=== PATIENT | female | born 1960 | race Caucasian/White ===

== ENCOUNTER 2024-02-13 11:31 | Outpatient (OUT) | payer OTHER, SELFPAY ==
--- NOTE | 2024-02-13 12:02 | XR_ITS ---
The [address] [address] Patient Name: BRUNA BOLDEN MRN: [id number] date: 1960 Sex: F Assigned Patient Location: LAB Current Patient Location: LAB Accession/Order Number: [id number] Exam Date: 02/13/2024 12:04 Report Date: 02/13/2024 12:22 At the request of: NON-STAFF PHYSICIAN Procedure: XR chest 2V EXAM: XR chest 2V HISTORY: generalized hyperhidrosis R61 COMPARISON: None. TECHNIQUE: PA and lateral views of the chest. FINDINGS: The cardiomediastinal silhouette is normal. No focal consolidation is identified. There is no pneumothorax. No pleural effusion is noted. The osseous structures are intact. XR/XR chest 2V IMPRESSION: No acute cardiopulmonary process. Electronically authenticated by: CLARK LANDERS Date: 02/13/2024 12:22
[2024-02-13 12:07] LABS: Basophils Absolute Auto 0.1 10^3/uL (0.0-0.1); Eosinophils Absolute Auto 0.1 10^3/uL (0.0-0.7); Eosinophils Percent Auto 2.2 % (0.9-7.0); Hematocrit 42.7 % (36.0-48.0); Hemoglobin 14.4 g/dL (12.0-16.0); Immature Granulocytes Abs Auto 0.02 10^3/uL (0.00-0.03); Immature Granulocytes Pct Auto 0.4 % (0.0-0.5); Lymphocytes Absolute Auto 1.4 10^3/uL (1.2-3.8); Lymphocytes Percent Auto 26.5 % (20.5-60.0); Mean Corpuscular HGB Conc 33.7 g/dL (29.9-35.2); Mean Corpuscular Hemoglobin 31.2 pg (26.7-34.0); Mean Corpuscular Volume 92.6 fL (81.0-99.0); Mean Platelet Volume 9.4 fL (9.5-13.5); Monocytes Absolute Auto 0.4 10^3/uL (0.3-0.8); Monocytes Percent Auto 8.6 % (1.7-12.0); Neutrophils Absolute Auto 3.1 10^3/uL (1.4-6.5); Neutrophils Percent Auto 61.3 % (43.0-75.0); Platelet Count 237 10^3/uL (150-450); Red Blood Count 4.61 10^6/uL (4.20-5.40); Red Cell Distribution Width 11.7 % (11.0-15.0); White Blood Count 5.1 10^3/uL (4.0-11.0)
[2024-02-13 12:17] LABS: Erythrocyte Sedimentation Rate 7 mm/hr (<=30)
[2024-02-13 12:17] LABS: Bilirubin Urine NEGATIVE (NEGATIVE); Blood Urine SMALL (NEGATIVE); Clarity Urine CLEAR (CLEAR); Color Urine LT. YELLOW (YELLOW); Glucose Urine UA NEGATIVE (NEGATIVE); Ketones Urine NEGATIVE (NEGATIVE); Leukocyte Esterase Urine SMALL (NEGATIVE); Nitrite Urine NEGATIVE (NEGATIVE); Protein Urine NEGATIVE (NEG/TRACE); Urine Microscopic Indicated YES; Urobilinogen Urine 0.2 EU/dL (0.2-1.0); pH Urine 6.5 (5.0-9.0)
[2024-02-13 12:30] LABS: Bacteria Urine TRACE #/HPF (NONE SEEN); Cast Seen? NONE SEEN #/LPF (NONE SEEN); Crystals Seen? None Seen #/HPF (None Seen); Mucus Urine NONE SEEN (NONE SEEN); Squamous Epithelial Cell Urine FEW #/LPF (NONE/RARE); Urine Culture Indicated YES
[2024-02-13 12:46] LABS: Alanine Aminotransferase 25 U/L (14-59); Albumin Globulin Ratio 1.2; Albumin Level 3.8 g/dL (3.4-5.0); Alkaline Phosphatase 54 U/L (46-116); Anion Gap 10.8; Aspartate Amino Transferase 15 U/L (15-37); BUN Creatinine Ratio 16.7; Bilirubin Total 0.6 mg/dL (0.2-1.0); C Reactive Protein <0.50 mg/dL (<=0.50); Calcium 9.4 mg/dL (8.5-10.1); Carbon Dioxide 29.5 mmol/L (21.0-32.0); Chloride 104 mmol/L (98-107); Estimated GFR (African America >60 (>=60); Estimated GFR (Non-African Ame >60 (>=60); Free T3 3.13 pg/mL (2.18-3.98); Globulin 3.3 g/dL; Glucose 119 mg/dL (74-106); Lactate Dehydrogenase 136 U/L (81-234); Potassium 4.3 mmol/L (3.5-5.1); Sodium 140 mmol/L (136-145); Thyroid Stimulating Hormone 1.264 uIU/mL (0.358-3.740); Total Protein 7.1 g/dL (6.4-8.2)
[2024-02-13 14:01] LABS: Free T4 0.79 ng/dL (0.76-1.46)
== END 2024-02-13 11:32 | disposition home or self-care (01) ==
LOC: LAB 11:38
DX: R61 Generalized hyperhidrosis (principal); I10 Essential (primary) hypertension; E55.9 Vitamin D deficiency, unspecified; E03.9 Hypothyroidism, unspecified
CPT/HCPCS: 36415; 71046; 80053; 81001; 82306; 83615; 84439; 84443; 84481; 85025; 85652; 86140; 87086

== ENCOUNTER 2025-08-11 15:11 | Outpatient (OUT) | payer OTHER, SELFPAY ==
[2025-08-11 16:11] LABS: Glucose Urine UA NEGATIVE (NEGATIVE)
[2025-08-11 16:21] LABS: Cast Seen? NONE SEEN #/LPF (NONE SEEN); Crystals Seen? None Seen #/HPF (None Seen); Urine Culture Indicated NO
--- OUTSIDE RECORDS SUMMARY | 2025-08-11 17:08 | XMS_ITS | CCD ---
Author Organization [facility] Care Team Providers Care Panelboard Operator Name Role Phone Florentino, Lori Unavailable Unavailable Florentino, Lori Unavailable Unavailable Charisma Sultana Unavailable Enio Frias Primary Care Provider Cheli Roberts Unavailable DAVE GARZA Admitting Unavailable DAVE GARZA Attending Unavailable MISGrant, DR SZYMANSKI Primary Care Unavailable [place], DR CHRISTI Gallego Consulting Unavailable DAVE GARZA Consulting Unavailable IVONNE NJ Admitting Unavailable IVONNE [place] Attending Unavailable AAMIR, DR SZYMANSKI Primary Care Unavailable IVONNE [place] Consulting Unavailable KHLOE BIRMINGHAM Admitting Unavailable KHLOE BIRMINGHAM Attending Unavailable AAMIR, DR SZYMANSKI Primary Care Unavailable KHLOE BIRMINGHAM Consulting Unavailable Unavailable Primary Care Provider UnavailCorey Chen DO Primary Care Provider Timmy Cervantes DO Primary Care Provider Timmy Cervantes DO Attending Provider Timmy Cervantes Attending Unavailable Timmy Cervantes Primary Care Unavailable Timmy Cervantes Admitting Unavailable JAYRO SAMUELS Attending Unavailable COREY CERVANTES Referring Unavailable LEMUEL BARNETT Attending Unavailable COREY CERVANTES Referring Unavailable LEMUEL BARNETT Attending Unavailable COREY CERVANTES Referring Unavailable LEMUEL BARNETT Attending Unavailable COREY CERVANTES Referring Unavailable LEMUEL BARNETT Attending Unavailable COREY CERVANTES Referring Unavailable LEMUEL BARNETT Attending Unavailable COREY CERVANTES Referring Unavailable EARLENE BASSETT Attending Unavailable LEMUEL BARNETT Attending COREY Sellers Referring Unavailable LEMUEL BARNETT Attending Unavailable COREY CERVANTES Referring Unavailable LEMUEL BARNETT Attending Unavailable COREY CERVANTES Referring Unavailable LEMUEL BARNETT Attending Unavailable COREY CERVANTES Referring Unavailable LEMUEL BARNETT Attending Unavailable COREY CERVANTES Referring Unavailable COREY CERVANTES Attending Unavailable COREY CERVANTES Attending Unavailable COREY CERVANTES Referring Unavailable OH ZARATE Attending Unavailable COREY CERVANTES Attending Unavailable COREY CERVANTES Referring Unavailable Allergies Allergy Classification Reported Allergen(s) Allergy Type Date of Onset Reaction(s) Facility (3 sources) Other Allergy to substance (disorder) ct scan dye [facility] (1 source) -No Known Food Allergies Allergy to substance (disorder) [facility] (3 sources) Metrizamide Drug allergy Apptio Other (20 sources) Iodinated Contrast Media Drug Allergy 8 [facility] (1 source) Iodinated Contrast Media Drug allergy (disorder) 2 [facility] Repository Medications Current Medications Medication Drug Class(es) Dates Sig (Normalized) Sig (Original) [id number] actuat albuterol 0.09 mg/actuat metered dose inhaler (1 source) beta2-Adrenergic Agonist Start: 2 take 2 puff(s) by inhalation every four hours as needed Albuterol Sulfate HFA 108 (90 Base) MCG/ACT 2 puffs as needed Inhalation every 4 hrs Nov, Active amLODIPine 5 mg oral tablet (6 sources) Dihydropyridine Calcium Channel Wm Start: 4 End: 4 take 1 tablet by mouth once daily amLODIPine (Norvasc) 5 MG tablet take 1 tablet by mouth once daily for 30 DAYS 02/11/2024 11/11/2024 Discontinued cyclobenzaprine hydrochloride 5 mg oral tablet (2 sources) Muscle Relaxant Start: 4 End: 4 take 1 tablet by mouth three times daily as needed for muscle spasms cyclobenzaprine (Flexeril) 5 MG tablet Indications: Acute bilateral thoracic back pain Take 1 tablet (5 mg) by mouth 3 (three) times a day as needed for muscle spasms for up to 10 days 30 tablet 11/11/2024 11/21/2024 Active cycloSPORINE 0.5 mg/ml ophthalmic suspension (20 sources) Calcineurin Inhibitor Immunosuppressant Start: take 1 drop(s) into the eye(s) every twelve hours Restasis 0.05 % ophthalmic emulsion Administer 1 drop into both eyes every 12 (twelve) hours 04/24/2025 Active Start: 04-16-2024 End: 02-02-2025 take 1 drop(s) into the eye(s) in the morning cycloSPORINE (Restasis MultiDose) 0.05 % ophthalmic emulsion Indications: Keratoconjunctivitis sicca of both eyes not specified as Sjogren's Administer 1 drop into both eyes in the morning and 1 drop before bedtime. 180 mL 11 11/04/2024 02/02/2025 Active efinaconazole 100 mg/ml topical solution (6 sources) Azole Antifungal Start: 09-02-2023 End: 11-11-2024 Efinaconazole (Jublia) 10 % solution Indications: Onychomycosis APPLY TO AFFECTED AREA ONCE DAILY 4 mL 3 09/02/2023 11/11/2024 Discontinued fluticasone propionate 0.05 mg/actuat metered dose nasal spray (1 source) Corticosteroid Start: 11-12-2022 take 1 spray(s) nasal route once daily Fluticasone Propionate 50 MCG/ACT 1 spray in each nostril Nasally Once a day for 21 days Nov, Active ibuprofen 800 mg oral tablet (2 sources) Nonsteroidal Anti-inflammatory Drug Start: 05-04-2025 End: 06-03-2025 take 1 tablet by mouth in the morning, then take 1 tablet by mouth in the evening, then take 1 tablet by mouth at bedtime ibuprofen 800 MG tablet Indications: Elevated antinuclear antibody (SAMARA) level , Arthralgia, unspecified joint Take 1 tablet (800 mg) by mouth in the morning and 1 tablet (800 mg) in the evening and 1 tablet (800 mg) before bedtime. 40 tablet 2 05/04/2025 06/03/2025 Active Magnesium (3 sources) Magnesium 125 MG as directed Orally Active meloxicam 15 mg oral tablet (20 sources) Nonsteroidal Anti-inflammatory Drug Start: 11-11-2024 End: 11-11-2025 take 1 tablet by mouth once daily meloxicam (Mobic) 15 MG tablet Indications: Acute bilateral thoracic back pain Take 1 tablet (15 mg) by mouth Daily 30 tablet 3 11/11/2024 11/11/2025 Active methylPREDNISolone 4 mg oral tablet (1 source) Corticosteroid Start: 11-12-2022 methylPREDNISolone 4 MG as directed Orally Once a day for 6 days Nov, Active probiotic (3 sources) probiotic as dir ected Active taurine 500 mg oral tablet (3 sources) take 2 capsules by m outh once daily at bedtime Taurine 500 MG 2 caps Orally qhs Active thyroid (custodial) 60 mg oral tablet (20 sources) Start: 04-22-2025 take 1 tablet by mouth once daily thyroid (Justice Thyroid) 60 MG tablet Indications: Sebastián's thyroiditis (CMS/HCC) Take 1 tablet (60 mg) by mouth Daily 30 tablet 3 04/22/2025 Active Start: 05-27-2018 End: 11-11-2024 take 1 tablet by mouth once daily thyroid (Justice Thyroid) 60 MG tablet Indications: Sebastián's thyroiditis (CMS/HCC) Take 1 tablet (60 mg) by mouth Daily 30 tablet 3 11/11/2024 Active Comment on above: Take 1 tablet by kofi th once daily. levothyroxine sodium 0.075 mg oral tablet (17 sources) l-Thyroxine Start: 4 End: take 1 tablet by mouth in the morning levothyroxine (Synthroid, Levoxyl) 75 MCG tablet Take 75 mcg by mouth in the morning. Take on an empty stomach.. 02/19/2024 11/11/2024 Discontinued take 1 tablet by kofi th once daily in the morning Levothyroxine Sodium 75 MCG 1 tablet in the morning on an empty stomach Orally Once a day Active liothyronine sodium 0.005 mg oral tablet (8 sources) l-Triiodothyronine take 1 tablet by mouth once daily liothyronine (Cytomel) 5 MCG tablet Take 5 mcg by mouth Daily Active Liothyronine Sod ium Active liothyronine ora l Vitamin C 1000 MG (3 sources) take 1 tablet by kofi th once daily Vitamin C 1000 MG 1 tablet Orally Once a day Active Completed/Discontinued Medications Medication Drug Class(es) Dates Sig (Normalized) Sig (Original) ALPRAZolam 0.5 mg oral tablet (1 source) Benzodiazepine take 1 tablet by mouth every twenty-four hours as needed ALPRAZolam (XANAX) 0.5 mg tablet Take 0.5 mg by mouth at bedtime as needed. Three times daily as needed 0 Active Comment on above: Take 0.5 mg by mouth at bedtime as needed. Three times daily as needed amoxicillin 500 mg oral capsule (1 source) Penicillin-class Antibacterial Start: 10-22-2018 End: 10-29-2018 take 1 capsule by mouth three times daily amoxicillin 500 mg oral capsule 10/22/2018 10/29/2018 take 1 capsule (500 mg) by oral route 3 times per day for 7 days COMPOUNDED PRESCRIPTION (1 source) Start: 01-07-2009 COMPOUNDED PRESCRIPTION progesterone 200mg vaginal suppository 0 01/07/2009 Active Comment on above: progesterone 200mg v aginal suppository nabumetone 500 mg oral tablet (4 sources) Nonsteroidal Anti-inflammatory Drug nabumetone (RELAFEN) 500 mg tablet Take 500 mg by mouth twice daily. Twice daily 0 Active Comment on above: Take 500 mg by mouth twice daily. Twice daily Progesterone, Bulk, 100 % powd (1 source) Progesterone, Bulk, 100 % powd 0.25mg/75mg 0 Active Comment on above: 0.25mg/75mg Tri-Estarylla (3 sources) take 1 tablet by mouth once daily Tri-Estarylla 0.18/0.215/0.25 mg-35 mcg (28) oral tablet take 1 tablet by oral route once daily Problems Active Problems Problem Classification Problem Date Documented Date Episodic/Chronic Cataract (20 sources) Bilateral age-related nuclear cataracts; Translations: [Age-related nuclear cataract, bilateral] Onset: 4 11-03-2024 Chronic Chronic obstructive pulmonary disease and bronchiectasis (1 source) Bronchitis, not specified as acute or chronic Episodic Diabetes mellitus without complication (2 sources) Prediabetes; Translations: [Prediabetes] 05-04-2025 Episodic Disorders of teeth and jaw (7 sources) Temporomandibular joint disorder; Translations: [Temporomandibular joint disorders, unspecified] Onset: 8 Episodic Essential hypertension (20 sources) Hypertensive disorder; Translations: [Essential (primary) hypertension] 11-11-2024 Chronic Immunizations and screening for infectious disease (6 sources) Contact with and (suspected) exposure to other viral communicable diseases; Translations: [Raised antinuclear antibody] Episodic Inflammation; infection of eye (except that caused by tuberculosis or sexually transmitteddisease) (20 sources) Keratoconjunctivitis sicca; Translations: [Keratoconjunctivitis sicca, not specified as Sjogren's, bilateral] Onset: 4 11-03-2024 Chronic Nutritional deficiencies (1 source) Vitamin D deficiency, unspecified; Translations: [VITAMIN D DEFICIENCY UNSPECIFIED] Onset: 2 Chronic Other connective tissue disease (4 sources) Pain in right foot; Translations: [PAIN IN RIGHT FOOT] Onset: 3 Episodic Other fractures (10 sources) Compression fracture of thoracic spine; Translations: [Wedge compression fracture of unspecified thoracic vertebra, initial encounter for closed fracture] 01-07-2025 Episodic Other fractures (1 source) Wedge compression fracture of unspecified thoracic vertebra, initial encounter for closed fracture; Translations: [Wedge compression fracture of unspecified thoracic vertebra, initial encounter for closed fracture] Onset: 5 Episodic Other lower respiratory disease (4 sources) Cough; Translations: [Cough] Episodic Other non-traumatic joint disorders (2 sources) Joint pain; Translations: [Pain in unspecified joint] 05-04-2025 Episodic Other nutritional; endocrine; and metabolic disorders (20 sources) Hypercalcemia; Translations: [Hypercalcemia] Onset: 8 11-11-2024 Chronic Other screening for suspected conditions (not mental disorders or infectious disease) (5 sources) Decreased vitamin D; Translations: [Other specified abnormal findings of blood chemistry] Onset: 5 05-04-2025 Episodic Other skin disorders (1 source) Swelling, mass, or lump in head and neck Onset: 8 Episodic Residual codes; unclassified (4 sources) Insomnia; Translations: [Insomnia, unspecified] Episodic Spondylosis; intervertebral disc disorders; other back problems (12 sources) Acute thoracic back pain; Translations: [Pain in thoracic spine] 11-11-2024 Episodic Systemic lupus erythematosus and connective tissue disorders (2 sources) Keratoconjunctivitis sicca, in Sjogren's syndrome; Translations: [Sicca syndrome with keratoconjunctivitis] 05-04-2025 Chronic Thyroid disorders (20 sources) Unspecified acquired hypothyroidism; Translations: [Acquired hypothyroidism] Onset: Chronic Thyroid disorders (1 source) Atrophy of thyroid - acquired; Translations: [Atrophy of thyroid (acquired)] Episodic Past or Other Problems Problem Classification Problem Date Documented Da te Episodic/Chronic Genitourinary symptoms and ill-defined conditions (1 source) Other microscopic hematuria Onset: 12-19-2021 Resolved: 12-19-2021 Episodic Inflammation; infection of eye (except that caused by tuberculosis or sexually transmitteddisease) (20 sources) Blepharitis of upper and lower eyelids of bilateral eyes; Translations: [Unspecified blepharitis right eye, upper and lower eyelids] Onset: 11-03-2024 11-03-2024 Episodic Mycoses (4 sources) Tinea unguium; Translations: [TINEA UNGUIUM] Onset: 08-23-2022 Episodic Unclassified (1 source) Cough R05.9 Onset: 12-19-2021 Resolved: 12-19-2021 Unclassified (1 source) Acute right-sided low back pain without sciatica M54.50 Onset: 12-19-2021 Resolved: 12-19-2021 Viral infection (1 source) COVID-19 Onset: 12-19-2021 Resolved: 12-19-2021 Results Test Name Value Interpretation Reference Range Facility XR pre/post mri xrayon 04-08 XR pre/post mri xray [facility] [place] [address] MRI Report Signed Patient: Danielle Santana MR#: [id number] 9 : 1960 Acct:[id number] Age/Sex: 65 / F ADM Date: 04/07/25 Loc: [facility] Room: Type: [facility] Attending Dr: Timmy Cervantes DO Copies to: Clara Cervantes Jr, DO Ordering Provider: Clara Cervantes Jr, DO Date of Service: 04/07/25 MR/MR thoracic spine wo con: S22.00A ([id number]) XR/XR pre/post mri xray: THORACIC MRI MRI thoracic spine performed without contrast/2 views of the thoracic spine INDICATION: Compression fracture of body of thoracic vertebral body, abnormal x-ray of the thoracic spine FINDINGS: X-rays demonstrate mild dextrocurvature of the thoracic spine. There are 12 rib-bearing thoracic vertebral bodies. There is mild loss of height at T9. Otherwise remaining vertebral heights pre served. Intervertebral space height is grossly maintained. Visualized lungs are clear. MRI of the thoracic spine: Examination was performed on an open magnet system with less than optimal nffvum-xy-[id number] ratio which degrades Imaging quality. The cervical thoracic junction is poorly evaluated due to suboptimal bmnfjc-pi-rxrwn ratio. There is minimal superior plate compression at T7 and T9 greatest at T9. T7 likely incidental likely due to Schmorl's node deformities. No evidence of abnormal edema to suggest acute compression fracture. Otherwise the vertebral body heights maintained. No focal disc protrusion central canal or neural from narrowing identified. There is mild facet arthropathy T7-T12 Paraspinal soft tissues unremarkable. Within the upper abdomen, there are left hepatic lobe cysts noted largest 3.3 cm in size MR/MR thoracic spine wo con IMPRESSION: Mild superior endplate depression T9 and T7 with associated Schmorl's node deformities. No evidence acute compression fracture. Otherwise no significant degenerative changes identified. Impression dictated by: Washington Elder M.D. 04/08/2025 9:05 AM Dictation Location: [place] [address] Transcribed By: [facility] 04/08/25 0905 Dictated By: Washington Elder MD 04/08/25 0856 Signed By: 04/08/25 0905 Normal [facility] XR THORACIC SPINE 3 VIEWSon 11-11-2024 XR THORACIC SPINE 3 VIEWS XR THORACIC SPINE 3 VIEWS Reason for exam: Mid back strain Views: 3 Findings: The alignment is normal. There is mild mid thoracic curvature convex to the right. Vertebral body height and disc space height are normal at each level with the exception of mild concavity at the superior endplate of T9 producing approximately 10% loss of height. No fracture, subluxation or bone destruction is evident. Impression: Mild compression fracture at the superior endplate of T9, age-indeterminate. Dictated on: 11/12/2024 3:22 PM This report has been electronically signed and approved by the interpreting Radiologist. Normal Not Available Quick Fluon 11-12-2022 FLUAV Ab CF (S) [Titer] Negative [facility] Other FLUBV Ab CF (S) [Titer] Negative [facility] Other SGOTon 08-23-2022 AST [Catalytic activity/Vol] 12 U/L Critically low 15-37 [facility] Comment on above: Performed By: #### A LT, AST #### [facility] [address] [address] [address] Bess Fraire SGPTon 08-23-2022 ALT [Catalytic activity/Vol] 24 U/L Normal 14-59 [facility] Comment on above: Performed By: #### A LT, AST #### [facility] [address] [address] [address] Bess Fraire VIT D 25-OH LABCORPon 2021 Vitamin D, 25-Hydroxy 30.2 ng/mL Normal 30.0-100.0 [facility] Comment on above: Result Comment: Yessenia min D deficiency has been defined by the [place] of [employer] and an Endocrine Society practice guideline as a level of serum 25-OH vitamin D less than 20 ng/mL (1,2). The Endocrine Society went on to further define vitamin D insufficiency as a level between 21 and 29 ng/mL (2). 1. IOM ([place] of Medicine). 2010. Dietary reference intakes for calcium and D. [place]: The National Academies Press. 2. Damon MF, Ryan NC, Jace CASH, et al. Evaluation, treatment, and prevention of vitamin D deficiency: an Endocrine Society clinical practice guideline. JCEM. 2010; 96(7):1911-30. Performed By: #### V ITADLC #### [facility] [address] [address] [address] Bess Fraire FREE T3on 08-09-2022 FREE T3 1.75 pg/mlL Critically low 2.18-3.98 [facility] Comment on above: Performed By: #### F T3, TSH #### [facility] [address] [address] [address] Bess Fraire FREE T4on 08-09-2022 Free T4 [Mass/Vol] 1.02 ng/dL Normal 0.76-1.46 [facility] Comment on above: Performed By: #### F T4 #### [facility] [address] [address] [address] Bess Fraire TSHon 08-09-2022 TSH 1.615 uIU/mL Normal 0.358-3.740 [facility] Comment on above: Performed By: #### F T3, TSH #### [facility] [address] [address] [address] Bess Fraire COVID + FLU Quick Testingon 12-19-2021 COVID + FLU Quick Testing Positive [facility] Other COVID + FLU Quick Testing Negative [facility] Other Urinalysis - AUTOMATEDon Appearance (U) clear [employer] Other Bilirubin Ql (U) Negative [employer] Other Color (U) yellow [facility] Other Glucose Ql (U) Negative [employer] Other Hemoglobin Ql (U) trace-intact [facility] Other Ketones Ql (U) Negative [employer] Other Leukocyte esterase Test strip Ql (U) Negative [facility] Other Nitrite Ql (U) Negative [employer] Other pH (U) 6.0 [pH] [facility] Other Protein Ql (U) Negative [employer] Other Specific gravity (U) [Rel density] 1.020 [facility] Other Urobilinogen (U) [Mass/Vol] 0.2 mg/dL [facility] Other CNOVon 07-13-2021 CNOV Office Visit (ENDOMN ) NERSI SANTANA ([id number]) 1960 F Date Time Provider Department 07/13/21 2:20 PM ABELINO BROWER ENDOMN During your visit today, we recorded the following information about you: Pulse Blood pressure Weight 74/minute 154/94 73.9 kg Aleksandar Moffett Ma 07/13/2021 2:08 PM Signed Thank you for choosing the [facility] Department of Endocrinology, Diabetes and Metabolism. Did you know that you need to call 48 hours in advance of your scheduled visit, if you are unable to make your appointment? The [facility] [place] thanks you for your commitment, because patients not showing to their appointment results in a lost opportunity for patients to receive [facility] health care at the [facility]. To Cancel an appointment, please choose one of the following: - Call the Appointment Call Center at [phone] - From [employer], Go to Appointments ? Cancel Appts If cancelling, consider your need to reschedule to prevent further delays in your care. To Schedule an appointment, please choose one of the following: - Call the Appointment Call Center at [phone] - From [employer], Go to Appointments ? 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 - Progesterone, Bulk, 100 % powd 0.25mg/75mg - ALPRAZolam (XANAX) 0.5 mg tablet Take 0.5 mg by mouth at bedtime as needed. Three times daily as needed - nabumetone (RELAFEN) 500 mg tablet Take 500 mg by mouth twice daily. Twice daily - COMPOUNDED PRESCRIPTION progesterone 200mg vaginal suppository Problem List As Of Date: 07/13/2021 (None) Other instructions from your clinician: Thank you for choosing the [facility] Department of Endocrinology, Diabetes and Metabolism. Did you know that you need to call 48 hours in advance of your scheduled visit, if you are unable to make your appointment? The [facility] [place] thanks you for your commitment, because patients not showing to their appointment results in a lost opportunity for patients to receive [facility] health care at the [facility]. To Cancel an appointment, please choose one of the following: - Call the Appointment Call Center at [phone] - From [employer], Go to Appointments ? Cancel Appts If cancelling, consider your need to reschedule to prevent further delays in your care. To Schedule an appointment, please choose one of the following: - Call the Appointment Call Center at [phone] - From [employer], Go to Appointments ? Request an Appt Encounter Status:Closed by ABELINO BROWER on 06/19/22 Normal [facility] Free T4on 07-13-2021 Free T4 [Mass/Vol] 0.9 ng/dL Normal 0.9-1.7 [facility] Comment on above: Performed By: #### T SH, FT4 #### [facility] [address] [place] [address] T4 FREE/FREE THYROXon 2020 Free T4 [Mass/Vol] 0.9 ng/dL 0.9 - 1.7 ng/dL [facility] TSHon 07-13-2021 TSH Qn 2.410 m[IU]/L Normal 0.270-4.200 [facility] Comment on above: Performed By: #### T SH, FT4 #### [facility] [address] [place], [place] [address] TSH BLDon 07-13-2021 TSH Qn 2.410 m[IU]/L 0.270 - 4.200 uU/mL [facility] Lab Reportson 02-17-2021 Lab Reports [id number]:127 Normal [facility] Family Medicine Office/Clini c Noteon 10-20-2020 Family Medicine Office/Clinic Note Chief Complaint bilateral ear pain History of Present Illness Neris is a 60 yo female here c/o bilateral ear pain for past month, feel achy and itchy. At times sound goes in and out. Has not tried any OTC meds, hasn't felt need. No URI symptoms. NO sinus congestion. NO PND. Has had some headaches. Last labs-? Last colon cancer screening 12/2019 Last mammogram-- i dont want one Last pap- does not want to up date. Review of Systems Constitutional- Denies fever, chills HEENT-Denies sore throat, congestion, lymphadenopathy Cardiovascular-Denies chest pain, palpations Respiratory-Denies shortness of breath, cough Gastrointestinal-Kevin es nausea, vomiting, constipation, diarrhea Genitourinary-Denies dysuria, hematuria Extremities-Denies edema Skin-Denies rashes, skin lesions Neuro-Denies headaches, numbness, tingling, weakness Physical Exam Vitals & Measurements T: 36.6 ?C (Temporal Artery) HR: 73(Peripheral) BP: 130/82 SpO2: 99% HT: 160.0 cm HT: 160 cm WT: 75.0 kg WT: 75 kg BMI: 29.3 Constitutional-Alert, in no acute distress Head-Normocephalic, atraumatic Eyes-Pupils equal and reactive to light, extraocular muscles intact, sclera clear. Ears-Hearing intact to conversation. cerumen impaction on left, irrigated without issue. middle ear effusion bilaterally Neck-No lymphadenopathy, no thyroid masses/nodules palpated Cardiovascular-Regula r rate and rhythm, no murmurs noted Respiratory-No increased work of breathing. Clear to auscultation bilaterally, no wheezes or rhonchi Gastrointestinal-not examined Extremities-No edema Skin-No rashes visualized Neuro-CN II-XII grossly intact Psych-Cooperative, pleasant, good eye contact. Assessment/Plan 1. Middle ear effusion (H65.90: Unspecified nonsuppurative otitis media, unspecified ear) will do flonase, call in 1 week if not improved Ordered: fluticasone nasal, 1 spray(s), Nasal, BID, 16 gram, Refill(s) 0, each nostril, [facility] 160, cm, 10/20/20 17:57:00 EST, Height/Length Dosing, 75, kg, 10/20/20 17:57:00 EST, Weight Dosing 2. Impacted cerumen, left ear (H61.22: Impacted cerumen, left ear) irrigated without issue. Follow-up With When Contact Information Charisma SULTANA DO Only if needed Additional Instructions: Patient Education Cerumen Impaction Problem List/Past Medical History Ongoing Ankle edema Fatigue Gross hematuria Hypothyroid Impacted cerumen, left ear Left axillary swelling Middle ear effusion Preoperative evaluation to rule out surgical contraindication Stress incontinence Systolic murmur Tenderness of left axilla Historical No qualifying data Procedure/Surgical History None. Medications Justice Thyroid 60 mg Tab, 60 mg= 1 tab(s), Oral, Daily, 5 refills Enzymes Fermented Turmeric Flonase 0.05 mg/inh nasal spray, 1 spray(s), Nasal, BID Magnesium Malate, 125 mg Malic Acid, 375 mg Probiotics progesterone 100 mg oral capsule, 100 mg= 1 cap(s), Oral, Once a day (at bedtime) Taurine, 1000 mg, Bedtime Vitamin C, 1000 mg, Daily Allergies Contrast Dye (hives) Social History Alcohol - Denies Alcohol Use, 11/06/2019 Substance Abuse - Denies Substance Abuse, 11/06/2019 Tobacco - Denies Tobacco Use, 11/06/2019 Never (less than 100 in lifetime) Tobacco Use:. Never Smokeless Tobacco Use:., 10/20/2020 Family History Hepatitis C: Negative: Brother. Hyperthyroidism: Mother. Kidney Disease: Father, Brother and Uncle. Immunizations Vaccine Date Status Comments influenza virus vaccine, live, trivalent - Not Given Patient Refuses Normal [facility] Comment on above: Result Comment: Elec tronically Signed By: Charisma SULTANA DO\Date and Time Signed: 10/20/20 18:26 EST Patient Educationon 10-20-20 20 Patient Education Family Medicine Cerumen Impaction A cerumen impaction is when the wax in your ear forms a plug. This plug usually causes reduced hearing. Sometimes it also causes an earache or dizziness. Removing a cerumen impaction can be difficult and painful. The wax sticks to the ear canal. The canal is sensitive and bleeds easily. If you try to remove a heavy wax buildup with a cotton tipped swab, you may push it in further. Irrigation with water, suction, and small ear curettes may be used to clear out the wax. If the impaction is fixed to the skin in the ear canal, ear drops may be needed for a few days to loosen the wax. People who build up a lot of wax frequently can use ear wax removal products available in your local drugstore. SEEK MEDICAL CARE IF: You develop an earache, increased hearing loss, or marked dizziness. Document Released: 12/26/2005 Document Revised: 02/09/2013 Document Reviewed: 02/15/2011 ExitCare? Patient Information ?2013 [place] [facility]. Normal [facility] Thyroid Peroxidase(TPO) Abon 11-18-2018 Thyroid Peroxidase(TPO) Ab 215.0 IU/mL Critically high 0.0-35.0 [facility] Comment on above: Result Comment: [facility] [employer] [address] [place] [address] ([phone] Basic Metabolic Panelon - Anion gap 3 molar conc 13 mmol/L Normal 7-13 [facility] Calcium mass conc 10.0 mg/dL Normal 8.6-10.2 [facility] Chloride molar conc 101 mmol/L Normal 98-107 [facility] CO2 molar conc 26 mmol/L Normal 22-29 [facility] Creatinine mass conc 0.46 mg/dL Low 0.50-0.90 [facility] GFR/1.73 sq M predicted among blacks MDRD vol rate/area (S/P/Bld) mL/min/{1.73_m2} Normal >60 [facility] Comment on above: Result Comment: >60 mL/min/1.73m2 EGFR, calc. for ages 18 and older using theMDRD formula (not corrected for weight), is valid for stablerenal function. GFR/1.73 sq M.predicted MDRD vol rate/area mL/min/{1.73_m2} Normal >60 [facility] Comment on above: Result Comment: >60 mL/min/1.73m2 EGFR, calc. for ages 18 and older using theMDRD formula (not corrected for weight), is valid for stablerenal function. Glucose mass conc 113 mg/dL Critically high 74-109 [facility] Potassium molar conc 4.3 mmol/L Normal 3.5-5.1 [facility] Sodium molar conc 140 mmol/L Normal 132-144 [facility] Urea nitrogen mass conc 13 mg/dL Normal 6-20 [facility] Cortisolon 11-14-2018 Cortisol 9.4 ug/dL Normal [facility] Comment on above: Result Comment: Refe rence Ranges: AM Specimen 6.2-19.4 ug/dL PM Specimen 2.3-11.9 ug/dL PTH, Intacton 11-14-2018 PTH, Intact 67.1 pg/mL Critically high 15.0-65.0 [facility] TSH w/out Reflexon 8 Thyrotropin Qn 1.610 uIU/mL Normal 0.270-4.20 [facility] Thyroxine Freeon 11-14-2018 Thyroxine Free 1.12 ng/dL Normal 0.93-1.70 [facility] Vitamin B12 and Folateon Cobalamin (Vitamin B12) mass conc 676 pg/mL Normal 232-1245 [facility] Folate 16.0 ng/mL Normal 7.3-26.1 [facility] Comment on above: Result Comment: As o f 16, the methodology has changed. Results fromthis methodology should not be compared with results fromprevious methodology. Vital Signs Date Time Vital Sign Value Performing Clinician Facility 05-04-2025 14:57-0400 Body height 160 cm Corey Cervantes DO Work Phone: [facility] 05-04-2025 14:57-0400 Body mass index (BMI) [Ratio] 28.87 kg/m2 Corey Cervantes DO Work Phone: [facility] 05-04-2025 14:57-0400 Body temperature 97.11 [degF] Corey Cervantes DO Work Phone: [facility] 05-04-2025 14:57-0400 Body weight 73.94 kg Corey Cervantes DO Work Phone: [facility] 05-04-2025 14:57-0400 Diastolic blood pressure 86 mm[Hg] Corey Cervantes DO Work Phone: [facility] 05-04-2025 14:57-0400 Heart rate 64 /min Corey Cervantes [employer] Work Phone: [facility] 05-04-2025 14:57-0400 SaO2% (BldA) [Mass fraction] 98 % Corey Cervantes DO Work Phone: [facility] 05-04-2025 14:57-0400 Systolic blood pressure 118 mm[Hg] Corey Cervantes DO Work Phone: [facility] 11-11-2024 10:41-0500 Body height 160 cm Corey Cervantes DO Work Phone: [facility] 11-11-2024 10:41-0500 Body mass index (BMI) [Ratio] 28.77 kg/m2 Corey Cervantes DO Work Phone: [facility] 11-11-2024 10:41-0500 Body temperature 96.91 [degF] Corey Cervantes DO Work Phone: [facility] 11-11-2024 10:41-0500 Body weight 73.66 kg Corey Cervantes DO Work Phone: [facility] 11-11-2024 10:41-0500 Diastolic blood pressure 80 mm[Hg] Corey Cervantes DO Work Phone: [facility] 11-11-2024 10:41-0500 Heart rate 64 /min Corey Cervantes DO Work Phone: [facility] 11-11-2024 10:41-0500 SaO2% (BldA) [Mass fraction] 98 % Corey Cervantes DO Work Phone: [facility] 11-11-2024 10:41-0500 Systolic blood pressure 132 mm[Hg] Corey Cervantes DO Work Phone: [facility] 11-12-2022 16:30-0500 Body height 172.72 cm Cheli Alejandra Other [facility] Other 11-12-2022 16:30-0500 Body mass index (BMI) [Ratio] 24.02 kg/m2 Cheli Alejandra Other [facility] Other 11-12-2022 16:30-0500 Body temperature 98.3 [degF] Cheli Washingtonault Other [facility] Other 11-12-2022 16:30-0500 Body weight 71.67 kg Cheli Washingtonault Other [facility] Other 11-12-2022 16:30-0500 Respiratory rate 18 /min Cheli Alejandra Other [facility] Other 11-12-2022 16:30-0500 SaO2% (BldA) [Mass fraction] 97 % Cheli Alejandra Other [facility] Other 12-19-2021 14:30-0500 Body height 172.72 cm Charisma Sultana Other [facility] Other 12-19-2021 14:30-0500 Body mass index (BMI) [Ratio] 25.15 kg/m2 Charisma Schwerer Other [facility] Other 12-19-2021 14:30-0500 Body temperature 99 [degF] Charisma Schwerer Other [facility] Other 12-19-2021 14:30-0500 Body weight 75.03 kg Charisma Schwerer Other [facility] Other 12-19-2021 14:30-0500 Diastolic blood pressure 82 mm[Hg] Charisma Schwerer Other [facility] Other 12-19-2021 14:30-0500 SaO2% (BldA) [Mass fraction] 98 % Charisma Schwerer Other [facility] Other 12-19-2021 14:30-0500 Systolic blood pressure 122 mm[Hg] Charisma Schwerer Other [facility] Other 07-13-2021 14:08-0400 Body weight 73.94 kg Abelino Brower MD Work Phone: [facility] 07-13-2021 14:08-0400 Diastolic blood pressure 94 mm[Hg] Abelino Brower MD Work Phone: [facility] 07-13-2021 14:08-0400 Heart rate 74 /min Abelino Brower MD Work Phone: [facility] 07-13-2021 14:08-0400 Systolic blood pressure 154 mm[Hg] Abelino Brower MD Work Phone: [facility] 05-26-2018 18:05-0400 BP Diastolic 91 mm[Hg] [facility] 05-26-2018 18:05-0400 BP Systolic 150 mm[Hg] [facility] 05-26-2018 18:05-0400 Pulse (Heart Rate) 70 /min [facility] 05-26-2018 17:05-0400 BP Diastolic 91 mm[Hg] [facility] 05-26-2018 17:05-0400 BP Systolic 150 mm[Hg] [facility] 05-26-2018 17:05-0400 Pulse (Heart Rate) 70 /min [facility] Encounters Encounter Date Encounter Type Care Provider Facility Start: 05-04-2025 End: 05-04-2025 Office outpatient visit 25 minutes Corey Cervantes DO Work Phone: [facility] 230 Comment on above: Prediabetes (Primary Dx); Hypothyroidism, unspecified type (CMS/HCC); Keratoconjunctivitis sicca of both eyes not specified as Sjogren's; Elevated antinuclear antibody (SAMARA) level; Parathyroid related hypercalcemia (CMS/HCC); Low vitamin D level; Arthralgia, unspecified joint; Sjogren's syndrome with keratoconjunctivitis sicca Start: 05-04-2025 End: 05-04-2025 ambulatory COREY CERVANTES Not Available Start: 05-04-2025 End: 05-04-2025 Bamboo flowsheet Corey Cervantes DO Work Phone: [facility] Start: 05-04-2025 End: 05-04-2025 Bamboo flowsheet Corey Cervantes DO Work Phone: [facility] Start: 04-22-2025 End: 04-22-2025 ambulatory COREY CERVANTES Not Available Start: 04-07-2025 End: 04-07-2025 Patient encounter procedure GEhsan Donald Kaftan DO Work Phone: [facility] [address] Work Phone: Start: 04-07-2025 End: 04-07-2025 ambulatory Timmy Cervantes DO Work Phone: [facility] Work Phone: Start: 03-12-2025 End: 03-12-2025 Telephone encounter Corey Cervantes DO Work Phone: [facility] Comment on above: Referral Start: 02-24-2025 End: 02-24-2025 ambulatory Lemuel Brink [employer] [facility] Comment on above: Compression fracture of body of thoracic vertebra (CMS/HCC) (Primary Dx); Acute bilateral thoracic back pain Start: 02-18-2025 End: 02-18-2025 Bamboo flowsheet Lemuel Brink [employer] SERVICE [employer]PER[employer] [facility] Start: 02-18-2025 End: 02-18-2025 Bamboo flowsheet Lemuel Brink [employer] SERVICE SUPER[employer] [facility] Start: 02-18-2025 End: 02-18-2025 ambulatory Lemuel Brink [employer] SERVICE SUPER[employer] [facility] Comment on above: Compression fracture of body of thoracic vertebra (CMS/HCC) (Primary Dx); Acute bilateral thoracic back pain Start: 02-10-2025 End: 02-11-2025 ambulatory Lemuel Brink [employer] SERVICE [employer]PER[employer] [facility] Comment on above: Compression fracture of body of thoracic vertebra (CMS/HCC) (Primary Dx); Acute bilateral thoracic back pain Start: 02-10-2025 End: 02-10-2025 Bamboo flowsheet Lemuel Brink [employer] SERVICE SUPER[employer] [facility] Start: 02-10-2025 End: 02-10-2025 Bamboo flowsheet Lemuel Brink [employer] SERVICE SUPER[employer] [facility] Start: 02-05-2025 End: 02-05-2025 ambulatory LEMUEL BRINK Not Available Start: 01-29-2025 End: 01-29-2025 Bamboo flowsheet Lemuel Brink [employer] SERVICE SUPER[employer] [facility] Start: 01-29-2025 End: 01-29-2025 Bamboo flowsheet Lemuel Brink [employer]ING SERVICE SUPER[employer] [facility] Start: 01-29-2025 End: 01-29-2025 ambulatory Lemuel Brink [employer] SERVICE SUPER[employer] [facility] Comment on above: Compression fracture of body of thoracic vertebra (CMS/HCC) (Primary Dx); Acute bilateral thoracic back pain Start: 01-27-2025 End: 01-27-2025 ambulatory Lemuel Brink [employer] SERVICE SUPER[employer] [facility] Comment on above: Compression fracture of body of thoracic vertebra (CMS/HCC) (Primary Dx); Acute bilateral thoracic back pain Start: 01-27-2025 End: 01-27-2025 Bamboo flowsheet Lemuel Brink [employer]ING SERVICE SUPERVIS[employer] [facility] Start: 01-27-2025 End: 01-27-2025 Bamboo flowsheet Lemuel Brink [employer]ING SERVICE SUPER[employer] [facility] Start: 01-22-2025 End: 01-22-2025 ambulatory Lemuel Brink [employer] SERVICE SUPER[employer] [facility] Comment on above: Compression fracture of body of thoracic vertebra (CMS/HCC) (Primary Dx); Acute bilateral thoracic back pain Start: 01-21-2025 End: 01-21-2025 Bamboo flowsheet Lemuel Brink [employer] SERVICE SUPER[employer] [facility] Start: 01-21-2025 End: 01-21-2025 Bamboo flowsheet Lemuel Brink [employer] SERVICE SUPER[employer] [facility] Start: 01-21-2025 End: 01-21-2025 ambulatory Lemuel Brink [employer] SERVICE SUPER[employer] [facility] Comment on above: Compression fracture of body of thoracic vertebra (CMS/HCC) (Primary Dx); Acute bilateral thoracic back pain Start: 01-13-2025 End: 01-13-2025 Bamboo flowsheet Lemuel Brink [employer] SERVICE SUPER[employer] [facility] Start: 01-13-2025 End: 01-13-2025 Bamboo flowsheet Lemuel Brink [employer] SERVICE SUPER[employer] [facility] Start: 01-13-2025 End: 01-13-2025 ambulatory Lemuel Brink [employer] SERVICE SUPER[employer] [facility] Comment on above: Compression fracture of body of thoracic vertebra (CMS/HCC) (Primary Dx); Acute bilateral thoracic back pain Start: 01-11-2025 End: 01-11-2025 Bamboo flowsheet Lemuel Brink [employer]ING SERVICE SUPERVIS[employer] [facility] Start: 01-11-2025 End: 01-11-2025 Bamboo flowsheet Lemuel Brink [employer] SERVICE SUPER[employer] [facility] Start: 01-11-2025 End: 01-11-2025 ambulatory Lemuel Barnett [employer] SERVICE SUPER[employer] [facility] Comment on above: Compression fracture of body of thoracic vertebra (CMS/HCC) (Primary Dx); Acute bilateral thoracic back pain Start: 01-07-2025 End: 01-07-2025 ambulatory Jayro Samuels PT Work Phone: [facility] Comment on above: Acute bilateral thor acic back pain (Primary Dx); Compression fracture of body of thoracic vertebra (CMS/HCC) Start: 01-07-2025 End: 01-07-2025 Bamboo flowsheet Jayro Samuels PT Work Phone: [facility] Start: 01-07-2025 End: 01-07-2025 Bamboo flowsheet Jayro Samuels PT Work Phone: [facility] Start: 11-11-2024 End: 11-11-2024 Bamboo flowsheet Corey Cervantes DO Work Phone: [facility] Start: 11-11-2024 End: 11-11-2024 Bamboo flowsheet Corey Cervantes DO Work Phone: [facility] Start: 11-11-2024 End: 11-11-2024 Office outpatient new 45 minutes Corey Cervantes DO Work Phone: [facility] Comment on above: Acute bilateral thor acic back pain (Primary Dx); Sebastián's thyroiditis (CMS/HCC); Parathyroid related hypercalcemia (CMS/HCC); Hypothyroidism, unspecified type (CMS/HCC); Hypertension, unspecified type (CMS/HCC) Start: 11-11-2024 End: 11-11-2024 ambulatory COREY CERVANTES Not Available Start: 11-04-2024 End: 11-04-2024 Refarmin Peña COT Work Phone: [facility] Comment on above: Keratoconjunctivitis sicca of both eyes not specified as Sjogren's (Primary Dx) Start: 11-03-2024 End: 11-03-2024 ambulatory [place] Salvador ZARATE Not Available Start: 11-03-2024 End: 11-03-2024 Bamboo flowsheet Oh Zarate DO Work Phone: [facility] Start: 11-03-2024 End: 11-03-2024 Bamboo flowsheet Oh Zarate DO Work Phone: [facility] Start: 05-28-2024 End: 05-28-2024 ambulatory EARLENE BASSETT Not Available Start: 03-06-2023 End: 03-07-2023 ambulatory DAVE Salvador BAUMANNMEGAN Facility:[facility] Start: 11-12-2022 End: 11-12-2022 ambulatory Cheli Roberts Other [facility] Other Start: 11-12-2022 Office outpatient vi sit 15 minutes Cheli Roberts [facility] [place] Start: 08-23-2022 End: 08-24-2022 ambulatory [place]HLOE [place] Facility:[facility] Start: 08-09-2022 End: 08-10-2022 ambulatory IVONNE [place] Facility:[facility] Start: 12-28-2021 End: 12-28-2021 ambulatory Charisma Schwerer Other [facility] Other Start: 12-28-2021 Telephone encounter Charisma Schwerer [facility] [place] Start: 12-21-2021 End: 12-21-2021 ambulatory Charisma Schwerer Other [facility] Other Start: 12-21-2021 Telephone encounter Charisma Schwerer [facility] [place] Start: 12-19-2021 End: 12-19-2021 ambulatory Charisma Schwerer Other [facility] Other Start: 12-19-2021 Office outpatient vi sit 15 minutes Charisma Schwerer [facility] [place] Start: 07-13-2021 End: 07-13-2021 Patient encounter procedure Abelino Brower MD Work Phone: Endocrinology Comment on above: 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 (Primary Dx) Start: 10-22-2018 Dental examination Lori Good [facility] Start: 10-22-2018 Dental Lori Good Other [place] [facility] Start: 05-26-2018 Dental examination [facility] Start: 05-26-2018 End: 05-26-2018 Dental Fannie Brodbeck Other [place] [facility] Start: 01-14-2018 Dental examination [facility] Start: 01-14-2018 End: 01-14-2018 Dental Sreekanth Kyler Other [place] [facility] Procedures Date Procedure Procedure Detail Performing Clinician Start: 11-03-2024 End: 11-03-2024 [facility] medical xm&eval comprhnsv estab pt 1/> Keratoconjunctivitis sicca of both eyes not specified as Sjogren's Oh Zarate DO Work Phone: Comment on above: Keratoconjunctivitis sicca of both eyes not specified as Sjogren's (Primary Dx); Blepharitis of upper and lower eyelids of both eyes, unspecified type; Age-related nuclear cataract of both eyes Start: 01-14-2018 Caries Risk Assessment, moderate risk Lori Murilloem Start: 01-14-2018 Self-Management Goal Care Planned Lori Good Plan of Treatment Date Care Activity Detail Author Start: 10-10-2026 Screening for malign ant neoplasm of colon [facility] Start: 08-02-2025 Influenza vaccination Influenz a Vaccine (Season Ended) [facility] Start: 05-04-2025 End: 05-04-2025 Patient encounter procedure 05/04/2025 3:00 PM EDT Office Visit [facility] [address] [place] [address] Corey Cervantes, DO [address] [place] [address] Arrived [facility] 230 Comment on above: Arrived Start: 04-07-2025 [facility] Start: 04-07-2025 MR thoracic spine wo con MR th oracic spine wo con [facility] Start: 04-07-2025 XR pre/post mri xray XR pre/post mri xray [facility] Start: 04-07-2025 [facility] Start: 02-17-2025 End: 02-17-2025 ambulatory 02/17/2025 10:00 AM EDT Treatment [facility] [address] [place] [address] Lemuel Barnett, [employer]PER[employer] [facility] Start: 02-05-2025 End: 02-05-2025 ambulatory 02/05/2025 10:00 AM EST Treatment [facility] [address] [place] [address] Lemuel Barnett [employer] SERVICE SUPER[employer] [facility] Start: 02-03-2025 End: 02-03-2025 ambulatory 02/03/2025 2:00 PM EST Treatment [facility] [address] [place] [address] Lemuel Barnett, [employer] SERVICE SUPER[employer] [facility] Start: 01-29-2025 End: 01-29-2025 ambulatory [facility] Start: 01-27-2025 End: 01-27-2025 ambulatory 01/27/2025 3:30 PM EST Treatment [facility] [address] [place] [address] Lemuel Barnett D[employer]ING SERVICE SUPERVISOR [facility] Start: 01-22-2025 End: 01-22-2025 ambulatory 01/22/2025 9:30 AM EST Treatment [facility] [address] [place] [address] Lemuel Barnett, [employer] SERVICE SUPERVISOR [facility] Start: 01-21-2025 End: 01-21-2025 ambulatory 01/21/2025 10:30 AM EST Treatment [facility] [address] [facility] [address] [place] [address] Lemuel Barnett PTA Arrived [facility] Comment on above: Arrived Start: 01-20-2025 End: 01-20-2025 ambulatory 01/20/2025 2:00 PM EST Treatment [facility] [address] [facility] [address] [place] [address] Lemuel Barnett [employer]ING SERVICE SUPERVISOR [facility] Start: 01-13-2025 End: 01-13-2025 ambulatory 01/13/2025 1:00 PM EST Treatment [facility] [address] [facility] [address] [place] [address] Lemuel Barnett PTA Arrived [facility] Comment on above: Arrived Start: 01-11-2025 End: 01-11-2025 ambulatory 01/11/2025 1:00 PM EST Treatment [facility] [address] [facility] [address] [place] [address] Lemuel Barnett D[employer]ING SERVICE SUPERVISOR [facility] Start: 01-07-2025 End: 01-07-2025 ambulatory 01/07/2025 3:30 PM EST Evaluation [facility] [address] [facility] [address] [place] [address] Jayro Samuels, PT [address] [facility] [address] [place] [address] Compression fracture of body of thoracic vertebra (CMS/HCC); Abnormal x-ray of thoracic spine; Acute bilateral thoracic back pain [facility] Comment on above: Compression fracture of body of thoracic vertebra (CMS/HCC); Abnormal x-ray of thoracic spine; Acute bilateral thoracic back pain Start: 11-11-2024 End: 11-11-2025 CBC W Auto Differential panel - Blood CBC and differential Lab Routine Sebastián's thyroiditis (CMS/HCC) Acute bilateral thoracic back pain Parathyroid related hypercalcemia (CMS/HCC) Hypothyroidism, unspecified type (CMS/HCC) Hypertension, unspecified type (CMS/HCC) Expected: 11/11/2024 (Approximate), Expires: 11/11/2025 [facility] Comment on above: Expected: 11/11/2024 (Approximate), Expires: 11/11/2025 Start: 11-11-2024 End: 11-11-2025 Comprehensive metabolic 2000 panel - Serum or Plasma Comprehensive metabolic panel Lab Routine Sebastián's thyroiditis (CMS/HCC) Acute bilateral thoracic back pain Parathyroid related hypercalcemia (CMS/HCC) Hypothyroidism, unspecified type (CMS/HCC) Hypertension, unspecified type (CMS/HCC) Expected: 11/11/2024 (Approximate), Expires: 11/11/2025 [facility] Comment on above: Expected: 11/11/2024 (Approximate), Expires: 11/11/2025 Start: 11-11-2024 End: 11-11-2025 Lipid 1996 panel - Serum or Plasma Lipid panel Lab Routine Hypertension, unspecified type (CMS/HCC) Expected: 11/11/2024 (Approximate), Expires: 11/11/2025 [facility] Comment on above: Expected: 11/11/2024 (Approximate), Expires: 11/11/2025 Start: 11-11-2024 End: 11-11-2025 Parathyrin.intact [Mass/volume] in Serum or Plasma PTH, intact Lab Routine Parathyroid related hypercalcemia (CMS/HCC) Expected: 11/11/2024 (Approximate), Expires: 11/11/2025 [facility] Comment on above: Expected: 11/11/2024 (Approximate), Expires: 11/11/2025 Start: 11-11-2024 End: 11-11-2025 Thyrotropin [Units/volume] in Serum or Plasma TSH Lab Routine Sebastián's thyroiditis (CMS/HCC) Hypothyroidism, unspecified type (CMS/HCC) Expected: 11/11/2024 (Approximate), Expires: 11/11/2025 [facility] Work Phone: Comment on above: Expected: 11/11/2024 (Approximate), Expires: 11/11/2025 Start: 11-11-2024 End: 11-11-2025 Thyroxine (T4) free [Mass/volume] in Serum or Plasma T4, free Lab Routine Sebastián's thyroiditis (CMS/HCC) Hypothyroidism, unspecified type (CMS/HCC) Expected: 11/11/2024 (Approximate), Expires: 11/11/2025 [facility] Comment on above: Expected: 11/11/2024 (Approximate), Expires: 11/11/2025 Start: 11-11-2024 End: 11-11-2025 Triiodothyronine (T3) [Mass/volume] in Serum or Plasma T3 Lab Routine Sebastián's thyroiditis (CMS/HCC) Hypothyroidism, unspecified type (CMS/HCC) Expected: 11/11/2024 (Approximate), Expires: 11/11/2025 [facility] Comment on above: Expected: 11/11/2024 (Approximate), Expires: 11/11/2025 Start: 11-11-2024 End: 11-11-2025 XR Thoracic spine 3 Views XR thoracic spine 3 views Imaging Routine Acute bilateral thoracic back pain Expected: 11/11/2024, Expires: 11/11/2025 [facility] Comment on above: Expected: 11/11/2024 , Expires: 11/11/2025 Start: 11-11-2024 End: 11-11-2024 Patient encounter procedure 11/11/2024 10:40 AM EST Office Visit [facility] [address] [place] [id number] Corey Cervantes DO [address] [place] [address] Arrived [facility] [address] Comment on above: Arrived Start: 11-03-2024 End: 11-03-2024 Patient encounter procedure 11/03/2024 2:30 PM EST Office Visit [facility] [address] [place] [id number] Oh Zarate DO [address] [place] [address] Arrived [facility] Comment on above: Arrived Start: 08-02-2024 Influenza vaccination Influenza Vacc ine (#1) [facility] Start: 08-02-2022 Influenza vaccination INFLUENZA (#1) [facility] Start: 01-17-2021 DIABETES SCREEN DIABETES SCREEN [facility] Start: 2012 SHINGRIX VACCINE (1 of 2) BURGESS GRIX VACCINE (1 of 2) [facility] Start: 2007 COLOGUARD (FIT-DNA) COLOGUARD (FIT-D NA) [facility] Start: 2007 Colonoscopy COLONOSCOPY [facility] Start: 2007 COLORECTAL CANCER SCREENING COLORECTAL CANCER SCREENING [facility] Start: [address] COLONOGRAPHY [facility] Start: 2007 FECAL OCCULT BLOOD FECAL OCCULT BLOO D [facility] Start: 2007 LIPID SCREEN LIPID SCREEN [facility] Start: 2007 SIGMOIDOSCOPY SIGMOIDOSCOPY [facility] Start: 2002 Mammography MAMMOGRAM [facility] Start: 2002 Screening for malign ant neoplasm of breast Mammogram [facility] Start: 1992 HPV TESTING HPV TESTING [facility] Start: 1992 Screening for malign ant neoplasm of cervix [facility] Start: 1983 PAP TESTING PAP TESTING [facility] Start: 1983 Screening for malign ant neoplasm of cervix Pap Smear [facility] Start: 1981 Urine microalbumin profile DTAP,TDAP ,TD (1 - Tdap) [facility] Start: 1980 HEPATITIS C SCREENING HEPATITIS C SC REENING [facility] Start: 1980 HIV SCREENING HIV SCREENING [facility] Start: 1974 Adult depression scr [facility] assessment DEPRESSION SCREENING [facility] Start: 1962 COVID-19 VACCINE (#1) COVID-19 VACCI NE (#1) [facility] Start: 1962 Screening for malign ant neoplasm of colon [facility] Payers Date Payer Category Payer Self-pay 1959 Medicaid [id number] 1959 Unknown [id number] 2017 Medicaid [facility] MEDICAID [id number] 2017-Present [phone] [address] [place] [address] Medicaid [id number] 2014 Private Health Insurance [facility] MEDICAID [id number] 1962 Unknown [id number] [id number]. 593 1962 Unknown [id number] 2.16840.1.126376.3.579.2. 593 1962 Unknown [id number] 2.16.840.1.430874.3.579.2. 593 1962 Unknown [id number] 2.16.840.1.172236.3.579.2. 1259 1962 Unknown [id number] 2.16.840.1.522881.3.579.2. 1259 1962 Unknown [id number] 2.16.840.1.414764.3.579.2. 1259 1962 Unknown [id number] 2.16.840.1.369783.3.579.2. 1259 1962 Unknown [id number] 2.16.840.1.265702.3.579.2. 1259 1962 Unknown [id number] 2.16.840.1.106260.3.579.2. 1259 1962 Unknown [id number] 2.16.840.1.829099.3.579.2. 1258 1962 Unknown [id number] 2.16.840.1.365444.3.579.2. 1259 1962 Unknown [id number] 2.16.840.1.985471.3.579.2. 1258 1962 Unknown [id number] 2.16.840.1.942008.3.579.2. 1258 1962 Unknown [id number] 2.16.840.1.761782.3.579.2. 1258 1962 Unknown [id number] 2.16.840.1.183869.3.579.2. 1258 1962 Unknown [id number] 2.16.840.1.017473.3.579.2. 1258 1962 Unknown [id number] 2.16.840.1.612242.3.579.2. 9 1962 Unknown [id number] 2.16.840.1.612042.3.579.2. 1258 1962 Unknown [id number] 2.16.840.1.501709.3.579.2. 1258 1962 Unknown [id number] 2.16.840.1.930171.3.579.2. 1259 Unknown [id number] 2.16.840.1.401953.3.579.2. 531 Social History Date Type [facility] Start: 05-28-2024 End: 05-04-2025 Sex Assigned At [facility] [place] [facility] Other Start: 05-28-2024 Tobacco smoking status VAIS Never smoked tobacco [facility] Start: 07-13-2021 End: 05-04-2025 Alcohol intake Current drinker of alcohol (finding) [facility] Start: 1960 Sex Assigned At Not on file [facility] Start: 06-13-2021 End: 07-13-2021 Exposure to SARS-CoV-2 (event) Not sure [facility] Start: 05-28-2024 Tobacco use and exposure Smokeless tobacco non-user [facility] Start: 05-28-2024 End: 05-04-2025 History of Social function [facility] Start: 11-11-2024 Alcohol Comment [facility] Tobacco smoking status NHIS Unknown if ever smoked [facility] Work Phone: Start: 04-08-2025 Sex Female (finding) [facility] Start: 1960 Sex Assigned At Female F [facility] Functional Status Date Assessment Result Facility 05-04-2025 Patient Health [facility] ionnaire 2 item (PHQ-2) [Reported] [facility] Clinical Notes 07-13-2021 to 05-04-2025 Corey Cervantes, - 05/04/2025 3:00 PM EDTTelephone Encounter - Jessica Pagebeatrice - 03/12/2025 9:55 AM EDTTelephone Encounter - Jessica Alexander - 03/12/2025 9:55 AM EDT Note Date & Type Note Facility 05-04-2025 History of Present illness Narrative Images from the original note were not included. SUBJECTIVE: Neris Santana is a 65 y.o. female presents with chief complaint of Results, Prediabetes. Pt presents to the office to review blood work results. Labs show sugar is in the prediabetes range. Labs also showed autoimmune test is positive. Pt wanted to wait for referral to rheumatology until able to talk with PCP. Here to discuss. 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) Hypothyroidism (CMS/HCC) HTN (hypertension) (CMS/HCC) Low vitamin D level Past Medical History: Past Medical History: Diagnosis Date Dry eyes Sebastián's disease (CMS/HCC) HTN (hypertension) (CMS/HCC) Hypothyroid (CMS/HCC) Vitamin D deficiency Family History: Family History Problem Relation Name Age of Onset Thyroid disease Mother Kidney disease Father Kidney disease Brother Kidney disease Father's Brother Allergies: Allergies Allergen Reactions Iodinated Contrast Media Hives Elevated BP Surgical History: Past Surgical History: Procedure Laterality Date LASER LAPAROSCOPY Social History: Social Drivers of [employer] Tobacco Use: Low Risk (04/22/2025) Patient History Smoking Tobacco Use: Never Smokeless Tobacco Use: Never Passive Exposure: Not on file Alcohol Use: Not on file Financial Resource Strain: Not on file Food Insecurity: Not on file Transportation Needs: Not on file Physical Activity: Not on file Stress: Not on file Social Connections: Not on file Intimate Partner Violence: Not on file Depression: Not at risk (04/22/2025) PHQ-2 PHQ-2 Score: 0 Housing Stability: Not on file Health Literacy: Not on file OBJECTIVE: Visit Vitals Smoking Status Never Physical Exam Constitutional: Appearance: Normal appearance. HENT: Head: Normocephalic and atraumatic. Eyes: Extraocular Movements: Extraocular movements intact. Conjunctiva/sclera: Conjunctivae normal. Pupils: Pupils are equal, round, and reactive to light. Cardiovascular: Rate and Rhythm: Normal rate and regular rhythm. Pulmonary: Effort: Pulmonary effort is normal. Breath sounds: Normal breath sounds. Abdominal: General: Bowel sounds are normal. Palpations: Abdomen is soft. Musculoskeletal: General: Normal range of motion. Skin: General: Skin is warm and dry. Neurological: General: No focal deficit present. Mental Status: She is alert and oriented to person, place, and time. Psychiatric: Mood and Affect: Mood normal. Thought Content: Thought content normal. Judgment: Judgment normal. Recent Results (from the past 4 weeks) SAMARA by IFA, Reflex to Titer and Pattern Collection Time: 04/22/25 2:29 PM Result Value Ref Range SAMARA BY IFA RFX TITER/PATTERN Positive (A) LYUBOV STAINING PATTERNS Collection Time: 04/22/25 2:29 PM Result Value Ref Range SPECKLED PATTERN 1:320 (H) NOTE: Comment CBC and differential Collection Time: 04/22/25 2:30 PM Result Value Ref Range WBC 6.3 3.4 - 10.8 x10E3/uL RBC 4.85 3.77 - 5.28 x10E6/uL Hgb 15.3 11.1 - 15.9 g/dL Hct 45.3 34.0 - 46.6 % MCV 93 79 - 97 fL MCH 31.5 26.6 - 33.0 pg MCHC 33.8 31.5 - 35.7 g/dL RDW 11.4 (L) 11.7 - 15.4 % Platelets 276 150 - 450 x10E3/uL Neutrophils 61 Not Estab. % Lymphs 27 Not Estab. % Monocytes 8 Not Estab. % Eos 3 Not Estab. % Basos 1 Not Estab. % Neutrophils Abs 3.9 1.4 - 7.0 x10E3/uL Lymphs Abs 1.7 0.7 - 3.1 x10E3/uL MonocytesAbs 0.5 0.1 - 0.9 x10E3/uL Eos Abs 0.2 0.0 - 0.4 x10E3/uL Baso Abs 0.1 0.0 - 0.2 x10E3/uL Immature Granulocytes 0 Not Estab. % Immature Grans Abs 0.0 0.0 - 0.1 x10E3/uL Comprehensive metabolic panel Collection Time: 04/22/25 2:30 PM Result Value Ref Range Glucose 99 70 - 99 mg/dL BUN 14 8 - 27 mg/dL Creat 0.70 0.57 - 1.00 mg/dL EGFR 97 >59 mL/min/1.73 BUN/Creat Ratio 20 12 - 28 Sodium 139 134 - 144 mmol/L Potassium 4.3 3.5 - 5.2 mmol/L Chloride 101 96 - 106 mmol/L Carbon Dioxide 22 20 - 29 mmol/L Calcium 10.4 (H) 8.7 - 10.3 mg/dL Protein Total 7.1 6.0 - 8.5 g/dL Albumin 4.7 3.9 - 4.9 g/dL Globulin Total 2.4 1.5 - 4.5 g/dL Bili Total 0.4 0.0 - 1.2 mg/dL Alk Phosphatase 70 44 - 121 IU/L AST 17 0 - 40 IU/L ALT 15 0 - 32 IU/L Vitamin D 1,25 dihydroxy Collection Time: 04/22/25 2:30 PM Result Value Ref Range VITAMIN D, 1,25 (OH)2, TOTAL 63.0 24.8 - 81.5 pg/mL TSH Collection Time: 04/22/25 2:30 PM Result Value Ref Range TSH 1.850 0.450 - 4.500 uIU/mL T4, free Collection Time: 04/22/25 2:30 PM Result Value Ref Range T4Free(Direct) 1.01 0.82 - 1.77 ng/dL T3 Collection Time: 04/22/25 2:30 PM Result Value Ref Range T3 Triiodothyronine 92 71 - 180 ng/dL PTH, intact Collection Time: 04/22/25 2:30 PM Result Value Ref Range PARATHYROID HORMONE INTACT 47 15 - 65 pg/mL Hemoglobin A1c Collection Time: 04/22/25 2:30 PM Result Value Ref Range HgbA1C 5.8 (H) 4.8 - 5.6 % ASSESSMENT AND PLAN: Assessment/Plan Diagnoses and all orders for this visit: Prediabetes Reviewed labs and/or imaging at ov today. Will continue current treatment regimen and follow up at next scheduled visit unless problems arise. Hypothyroidism, unspecified type (CMS/HCC) Problem is stable, will continue with current treatment plan. Call or return to clinic if any changes occur Keratoconjunctivitis sicca of both eyes not specified as Sjogren's - Ambulatory referral to Rheumatology; Future Elevated antinuclear antibody (SAMARA) level - ibuprofen 800 MG tablet; Take 1 tablet (800 mg) by mouth in the morning and 1 tablet (800 mg) in the evening and 1 tablet (800 mg) before bedtime. - Ambulatory referral to Rheumatology; Future Parathyroid related hypercalcemia (CMS/HCC) Patient advised to return if symptoms worsen and/or persist despite treatment. Low vitamin D level Problem is stable, will continue with current treatment plan. Call or return to clinic if any changes occur Arthralgia, unspecified joint - ibuprofen 800 MG tablet; Take 1 tablet (800 mg) by mouth in the morning and 1 tablet (800 mg) in the evening and 1 tablet (800 mg) before bedtime. Sjogren's syndrome with keratoconjunctivitis sicca Reviewed labs and/or imaging at ov today. Will continue current treatment regimen and follow up at next scheduled visit unless problems arise. Patient advised to return if symptoms worsen and/or persist despite treatment. Updated Medications: I have reviewed and reconciled the history and medication list with the patient today. Current Outpatient Medications: Restasis 0.05 % ophthalmic emulsion, Administer 1 drop into both eyes every 12 (twelve) hours, Disp: , Rfl: thyroid (Justice Thyroid) 60 MG tablet, Take 1 tablet (60 mg) by mouth Daily, Disp: 30 tablet, Rfl: 3 documented in this encounter [facility] 03-12-2025 Telephone encounter Note Pt requesting call back from nurse. She is having trouble getting her MRI scheduled. She was told she could have an open MRI but when she called [facility] to schedule they said they didn't have an open MRI. [facility] 03-12-2025 Miscellaneous Notes Pt requesting call back from nurse. She is having trouble getting her MRI scheduled. She was told she could have an open MRI but when she called [facility] to schedule they said they didn't have an open MRI. documented in this encounter [facility] 01-07-2025 History of Present illness Narrative Physical Therapy Evaluation Visit Patient Name: Neris Santana Today's Date: 01/07/2025 Encounter Diagnoses Name Primary? Compression fracture of body of thoracic vertebra (CMS/HCC) Abnormal x-ray of thoracic spine Acute bilateral thoracic back pain Visit number: 1 Timed Code Treatment Minutes: 50 minutes Total Treatment Time: 50 minutes Time In: 1530 Time Out: 1620 History: Pt. Presents to PT with c/c of mid back pain. JUSTIN: pt. Was lifting her mother off the floor then later that night she started having severe back. DOI: November 2024. Went to chiropractor for 1x treatment did not help. Then went to PCP for x-ray which showed Mild compression fracture at the superior endplate of T9, age-indeterminate. Pt. Was denied MRI and has to participate in 6 weeks of PT. Denies N/T. Precautions: T9 mild compression fracture Subjective Pain: 8/10 constant Objective: PT Evaluation (01/07/25) Thoracic ROM: rotation decreased 25% bilateral, Side bending 50% limited with increased pain bilateral, extension decreased 50% with increased pain Shoulder ROM: grossly WFL Flexibility: pectoralis minor tightness, rhomboid tightness Strength: scapular 4-/5 bilateral, core 4/5 Palpation: TTP at T5 to T7 segment Treatment: PT evaluation (20 minutes) Education: HEP education with demonstration, Educated on Eval Findings and POC Manual Therapy: Passive ROM, Joint mobilization, Soft Tissue Mobilization, Myofascial Release, Muscle Energy Technique, Neural Mobilization, Myofascial Cupping, Dry Needling, IASTM, and Scar mobilization Therapeutic Exercise: (24 minutes) exercises in grid Strength, Endurance, Flexibility, ROM, HEP, Neural Mobilization, Power, and Core Stability Therapeutic Activity: Exercises to improve dynamic activities, functional tasks, functional mobility to return to prior activity level Neuromuscular re-education: Balance Training, Muscle Facilitation, Dynamic Stability, Core Stabilization, and Blood Flow Restriction Training (BFRT) Modalities: Heat, Ice, Electrical Stimulation, Ultrasound, Cervical Mechanical Traction, Lumbar Mechanical Traction, Iontophoresis, and Fluidotherapy Assessment: Pt. Has participated in 1 PT session with start of POC on 01/07 for mid back pain. Pt will benefit from skilled PT services. PT treatment to focus on improving core/scapular muscle strength. Pt. Demonstrate mid back strain due to pulling up on her mother in November. Outcome Measure: in chart Short Term Goal: To be met in 2 weeks Goal 1: Pt to be instructed in home exercise program. Usp Goals: To be met in 10 weeks Goal 1: Pt to report independence and compliance with home program. Goal 2: Pt. Will report of 2/10 or less mid back pain while lifting/carrying objects. Goal 3: Pt. Will demonstrate normal thoracic ROM grossly in all planes to allow her to perform work tasks without limitations. Goal 4: Pt. Will demonstrate 5/5 scapular strength to allow her to lift/carry objects with no limitations. Goal 5: Pt. Will demonstrate normal rhomboid muscle flexibility to help decrease mid back pain. Pt will benefit from skilled PT for 1-3x/week from 01/07/25 to 03/18/25 to address the above impairments. I hereby deem this POC medically necessary. Please sign below. Date: documented in this encounter [facility] 11-11-2024 History of Present illness Narrative Images from the original note were not included. SUBJECTIVE: Neris Santana is a 64 y.o. female presents with chief complaint of Establishment. Pt presents to the office for establishment. Previous PCP: Dr. Olivares in [place]. Has dx of hasimoto's thyroiditis. Does follow with derm. Previously followed with endocrinology, but PCP was managing medications. Back pain: Has complaint of mid back pain. Onset: approx 1 month ago. Mother fell and strained back upon helping mother. Pt states the pain is constant. Described as nerve like pain. Seen chiropractor to help massage with no relief. Previously took ibuprofen with some relief but no longer taking. Denies any prior back problems. Review of Systems: Review of Systems All other systems reviewed and are negative. 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 Allergies: Allergies Allergen Reactions Iodinated Contrast Media Hives Surgical History: No past surgical history on file. Social History: Social Drivers of Health Tobacco Use: Low Risk (11/03/2024) Patient History Smoking Tobacco Use: Never Smokeless Tobacco Use: Never Passive Exposure: Not on file Alcohol Use: Not on file Financial Resource Strain: Not on file Food Insecurity: Not on file Transportation Needs: Not on file Physical Activity: Not on file Stress: Not on file Social Connections: Not on file Intimate Partner Violence: Not on file Depression: Not on file Housing Stability: Not on file Health Literacy: Not on file OBJECTIVE: Visit Vitals Smoking Status Never Physical Exam Constitutional: Appearance: Normal appearance. HENT: Head: Normocephalic and atraumatic. Eyes: Extraocular Movements: Extraocular movements intact. Conjunctiva/sclera: Conjunctivae normal. Pupils: Pupils are equal, round, and reactive to light. Cardiovascular: Rate and Rhythm: Normal rate and regular rhythm. Pulmonary: Effort: Pulmonary effort is normal. Breath sounds: Normal breath sounds. Abdominal: General: Bowel sounds are normal. Palpations: Abdomen is soft. Musculoskeletal: General: Normal range of motion. Comments: Bilat thoracic back pain and dec rom Skin: General: Skin is warm and dry. Neurological: General: No focal deficit present. Mental Status: She is alert and oriented to person, place, and time. Psychiatric: Mood and Affect: Mood normal. Thought Content: Thought content normal. Judgment: Judgment normal. No results found for this or any previous visit (from the past 4 weeks). ASSESSMENT AND PLAN: Assessment/Plan Diagnoses and all orders for this visit: Acute bilateral thoracic back pain Patient advised to return if symptoms worsen and/or persist despite treatment. - CBC and differential; Future - Comprehensive metabolic panel; Future - meloxicam (Mobic) 15 MG tablet; Take 1 tablet (15 mg) by mouth Daily - cyclobenzaprine (Flexeril) 5 MG tablet; Take 1 tablet (5 mg) by mouth 3 (three) times a day as needed for muscle spasms for up to 10 days - XR thoracic spine 3 views; Future Sebastián's thyroiditis (CMS/HCC) Labs ordered today, will follow up when results available - thyroid (Justice Thyroid) 60 MG tablet; Take 1 tablet (60 mg) by mouth Daily - TSH; Future - T4, free; Future - T3; Future - CBC and differential; Future - Comprehensive metabolic panel; Future Parathyroid related hypercalcemia (CMS/HCC) - CBC and differential; Future - Comprehensive metabolic panel; Future - PTH, intact; Future Hypothyroidism, unspecified type (CMS/HCC) - TSH; Future - T4, free; Future - T3; Future - CBC and differential; Future - Comprehensive metabolic panel; Future Hypertension, unspecified type (CMS/HCC) Record Blood Pressures 2-4 times weekly and record. Return with readings at next appointment. Call with readings if sees significant changes - Lipid panel; Future - CBC and differential; Future - Comprehensive metabolic panel; Future Updated Medications: I have reviewed and reconciled the history and medication list with the patient today. Current Outpatient Medications: amLODIPine (Norvasc) 5 MG tablet, take 1 tablet by mouth once daily for 30 DAYS, Disp: , Rfl: Justice Thyroid 60 MG tablet, take 1 tablet by mouth once daily ON AN EMPTY STOMACH, Disp: , Rfl: cycloSPORINE (Restasis MultiDose) 0.05 % ophthalmic emulsion, Administer 1 drop into both eyes in the morning and 1 drop before bedtime., Disp: 180 mL, Rfl: 11 Efinaconazole (Jublia) 10 % solution, APPLY TO AFFECTED AREA ONCE DAILY, Disp: 4 mL, Rfl: 3 levothyroxine (Synthroid, Levoxyl) 75 MCG tablet, Take 75 mcg by mouth in the morning. Take on an empty stomach.., Disp: , Rfl: Restasis 0.05 % ophthalmic emulsion, Administer 1 drop into both eyes in the morning and 1 drop before bedtime., Disp: , Rfl: documented in this encounter [facility] 11-03-2024 History of Present illness Narrative Images from the original note were not included. Assessment/Plan Images from the original note were not included. Assessment/Plan Diagnoses and all orders for this visit: Keratoconjunctivitis sicca of both eyes not specified as Sjogren's - Keratoconjunctivitis sicca OU -- Environmental changes to minimize dryness and exposure and the use of artificial tears were recommended. Cont Restasis both eyes (OU) BID. Increase usage of tears and warm compresses. Blepharitis of upper and lower eyelids of both eyes, unspecified type - Blepharitis, posterior type OU - The patient exhibits inspissated meibomian glands. Warm compresses, lid massage and lid scrubs were recommended. Age-related nuclear cataract of both eyes - Cataract, OU: Observe for now without intervention. The patient was advised to contact us if any change or worsening of vision documented in this encounter [facility] 03-07-2023 Note PROCEDURE: XR FOOT R T MIN 3 VIEWS COMPARISON: None. HISTORY: Pain in right foot FINDINGS: BONES:No acute fracture or dislocation. Enthesopathic spurring of the calcaneus. Mild degenerative change of the first metatarsal-phalangeal joint SOFT TISSUES:Negative. No visible soft tissue swelling. EFFUSION:None visible. OTHER: Negative. IMPRESSION: Mild degenerative changes Electronically authenticated by: CHRISTI ROBERTS Date: 2023-03-07 07:57 [facility] 11-12-2022 Evaluation note Encounter Date Diagnosis Assessment Notes Nov, Contact with and (suspected) exposure to other viral communicable diseases (ICD-10 - Z20.828) Nov, Bronchitis (ICD-10 - J40) Take medications as directed. Rest and increase fluid intake. Take meds with food to prevent stomach upset. Use inhaler as needed for coughing spells and SOB. It is better to use inhaler a few times a day over the next 2-3 days. Follow up with primary care provider if symptoms do not improve with treatment plan, although it may take a few weeks for the cough to go away [employer] Other 08-12-2021 Instructions* Patient Instructions* Aleksandar Moffett Ma - 07/13/2021 2:08 PM EDT Thank you for choosing the [facility] Department of Endocrinology, Diabetes and Metabolism. Did you know that you need to call 48 hours in advance of your scheduled visit, if you are unable to make your appointment? [facility] [place] thanks you for your commitment, because patients not showing to their appointment results in a lost opportunity for patients to receive world class health care at the [facility]. To Cancel an appointment, please choose one of the following: - Call the Appointment Call Center at [phone] - From [employer], Go to Appointments Cancel Appts If cancelling, consider your need to reschedule to prevent further delays in your care. To Schedule an appointment, please choose one of the following: - Call the Appointment Call Center at [phone] - From [employer], Go to Appointments Request an Appt documented in [facility] encounter[facility]Evaluation noteNorth Workable Other Evaluation noteNo InformationNort Workable Other Evaluation note* Diagnosis Hypothyroidism due to acquired atrophy of thyroid- Primary [facility]* Diagnosis Keratoconjunctivitis sicca of both eyes not specified as Sjogren's- Primary Blepharitis of upper and lower eyelids of both eyes, unspecified type Age-related nuclear cataract of both eyes documented in this encounter [facility]* Diagnosis Keratoconjunctivitis sicca of both eyes not specified as Sjogren's- Primary documented in this encounter [facility] note* Diagnosis Acute bilateral thoracic back pain- Primary Sebastián's thyroiditis (CMS/HCC) Chronic lymphocytic thyroiditis Parathyroid related hypercalcemia (CMS/HCC) Hyperparathyroidism, unspecified Hypothyroidism, unspecified type (CMS/HCC) Hypertension, unspecified type (CMS/HCC) documented in this encounter [facility] note* Diagnosis Acute bilateral thoracic back pain- Primary Compression fracture of body of thoracic vertebra (CMS/HCC) documented in this encounter [facility] note* Diagnosis Compression fracture of body of thoracic vertebra (CMS/HCC)- Primary Acute bilateral thoracic back pain documented in this encounter [facility]* Diagnosis Compression fracture of body of thoracic vertebra (CMS/HCC)- Primary Acute bilateral thoracic back pain documented in this encounter [facility] note* Diagnosis Compression fracture of body of thoracic vertebra (CMS/HCC)- Primary Acute bilateral thoracic back pain documented in this encounter [facility] note* Diagnosis Compression fracture of body of thoracic vertebra (CMS/HCC)- Primary Acute bilateral thoracic back pain documented in this encounter [facility] note* Diagnosis Compression fracture of body of thoracic vertebra (CMS/HCC)- Primary Acute bilateral thoracic back pain documented in this encounter [facility] HealthcareEvaluation noteNo assessment information availableMagruder Hospital Work Phone: Evaluation note* Diagnosis Prediabetes- Primary Other abnormal glucose Hypothyroidism, unspecified type (CMS/HCC) Keratoconjunctivitis sicca of both eyes not specified as Sjogren's Elevated antinuclear antibody (SAMARA) level Other and unspecified nonspecific immunological findings Parathyroid related hypercalcemia (CMS/HCC) Hyperparathyroidism, unspecified Low vitamin D level Arthralgia, unspecified joint Sjogren's syndrome with keratoconjunctivitis sicca documented in this encounter [facility] N[facility] - [facility] Other History general Narrative - Reported* Type Description Date Medical History hypothyroid [facility] Other Reason for visit Narrative* Rehabilitation - Outpatient (Routine) - Authorized Specialty Diagnoses / Procedures Referred By Sukhjinder monroy Referred To Contact Physical Therapy Diagnoses Compression fracture of body of thoracic vertebra (CMS/HCC) Abnormal x-ray of thoracic spine Acute bilateral thoracic back pain Procedures AL OFFICE/OUTPATIENT NEW HIGH MDM 60 MINUTES Corey Cervantes, DO [address] [facility] [address] [place] [address] Phone: tel: fax: Jayro Samuels, PT [address] [address] Phone: tel: fax: Referral ID Status Reason Start Date Expiration Date Visits Requested Visits Authorized [id number] Authorized Specialty Services Required 01/01/2025 06/30/2025 30 30 [facility] for visit Narrative* Rehabilitation - Outpatient (Routine) - Authorized Specialty Diagnoses / Procedures Referred By Sukhjinder monroy Referred To Contact Physical Therapy Diagnoses Compression fracture of body of thoracic vertebra (CMS/HCC) Abnormal x-ray of thoracic spine Acute bilateral thoracic back pain Procedures AL OFFICE/OUTPATIENT NEW HIGH MDM 60 MINUTES Corey Cervantes, DO [address] [facility] [address] [place] [address] Phone: tel: fax: Jayro Samuels, PT [address] [address] Phone: tel: fax: Referral ID Status Reason Start Date Expiration Date Visits Requested Visits Authorized [id number] Authorized Specialty Services Required 01/01/2025 12/01/2025 30 30 [facility]* Rehabilitation - Outpatient (Routine) - Closed Specialty Diagnoses / Procedures Referred By Sukhjinder monroy Referred To Contact Physical Therapy Diagnoses Compression fracture of body of thoracic vertebra (CMS/HCC) Abnormal x-ray of thoracic spine Acute bilateral thoracic back pain Procedures AL OFFICE/OUTPATIENT NEW HIGH MDM 60 MINUTES Corey Cervantes R, DO [address] [place] [address] Phone: tel: fax: Arvind Jayro T, PT [address] [place] [address] Phone: tel: fax: Referral ID Status Reason Start Date Expiration Date V isits Requested Visits Authorized [id number] Closed Specialty Services Required 01/01/2025 12/01/2025 30 30 [facility] History of Past Illness Name Date of Onset Comments Hypothyroidism TMJ (temporomandibular joint disorder) Dental examination Jan 14 2018 1:34PM Dental examination May 26 2018 2:41PM Dental calculus May 26 2018 2:41PM Summary Purpose Family History Relationship Condition Age at Onset Recorded Date/T narcisa father Unknown Family history of kidney disease Unknown mother Hypothyroidism Unknown Advance Directives Advance Directive Response Recorded Date/ Time Advance Directives No March 16, 025 10:48am Reason for Referral Specialty Diagnoses / Procedures Referred By Sukhjinder monroy Referred To Contact Nutrition Diagnoses Hypothyroidism due to acquired atrophy of thyroid Procedures CONSULT TO NUTRITION THERAPY NEW PATIENT VISIT LEVEL 5 Abelino Brower MD [address] [place] [address] Referral ID Status Reason Start Date Expiration Date Visits Requested Visits Authorized [id number] Authorized PCP Requested Referral 07/13/2021 07/13/2022 1 1 Chief Complaint and Reason for Visit Chief Complaint Admit Date S22.000A R93.7 April 07, 2025 2:16pm Additional Source Comments INFORMATION SOURCE (unrecogn ized section and content) DATE CREATED AUTHOR 11/20/2018 [facility] DATE CREATED AUTHOR AUTHOR'S ORGANIZ ATION 02/19/2021 [facility] DATE CREATED AUTHOR AUTHOR'S ORGANIZ ATION 06/22/2022 [facility] DATE CREATED AUTHOR AUTHOR'S ORGANIZ ATION 03/19/2023 [facility] DATE CREATED AUTHOR AUTHOR'S ORGANIZ ATION 04/16/2025 [facility] DATE CREATED AUTHOR AUTHOR'S ORGANIZ ATION 05/05/2025 [facility] EPIC REASON FOR VISIT (unrecogniz ed section and content) Reason Comments Thyroid Problem Reason Comments Eye Exam Dry Eye Reason Onset Date Comments Med Refill 11/04/2024 Reason Comments Establish Care Reason Onset Date Comments Referral 03/12/2025 Source Comments (unrecognize d section and content) In the event this informatio n is protected by the Federal Confidentiality of Alcohol and Drug Abuse Patient Records regulations: The Federal rules restrict any use of the information to criminally investigate or prosecute any alcohol or drug abuse patient.[facility] Care Teams (unrecognized sec tion and content) Panelboard Operator Relationship Specialty Start Date End Date Enio Frias PCP - General Family Practice 10/29/17 Panelboard Operator Relationship Specialty Start Date End Date Corey Cervantes DO [address] [place] [address] PCP - General Family Medicine 11/11/24 Panelboard Operator Relationship Specialty Start Date End Date Corey Cervantes DO [address] [place] [address] PCP - General Family Medicine 11/11/24 Panelboard Operator Relationship Specialty Start Date End Date Corey Cervantes DO [address] [place] [address] PCP - General Family Medicine 11/11/24 Panelboard Operator Relationship Specialty Start Date End Date Corey Cervantes DO [address] [place] [address] PCP - General Family Medicine 11/11/24 Panelboard Operator Relationship Specialty Start Date End Date Corey Cervantes DO [address] [place] [address] PCP - General Family Medicine 11/11/24 Panelboard Operator Relationship Specialty Start Date End Date Corey Cervantes DO [address] [place] [address] PCP - General Family Medicine 11/11/24 Panelboard Operator Relationship Specialty Start Date End Date Corey Cervantes DO [address] [place] [address] PCP - General Family Medicine 11/11/24 Panelboard Operator Relationship Specialty Start Date End Date Corey Cervantes DO [address] [place] [address] PCP - General Family Medicine 11/11/24 Panelboard Operator Relationship Specialty Start Date End Date Corey Cervantes DO [address] [place] [address] PCP - General Family Medicine 11/11/24 Panelboard Operator Relationship Specialty Start Date End Date Corey Cervantes DO [address] [place] [address] PCP - General Family Medicine 11/11/24 Panelboard Operator Relationship Specialty Start Date End Date Corey Cervantes DO [address] [place] [address] PCP - [facility] 11/11/24 Panelboard Operator Relationship Specialty Start Date End Date Corey Cervantes DO [address] [place] [address] PCP - [facility] 11/11/24 Panelboard Operator Relationship Specialty Start Date End Date Corey Cervantes DO [address] [place] [address] PCP - [facility] 11/11/24 Team Status: Active Member Role Status Dates Timmy Cervantes DO Primary Care Provider Active Team Status: Inactive Member Role Status Dates Timmy Cervantes DO Primary Care Provi yolanda, Attending Provider Active Start: April 07, 2025 End: April 07, 2025 Panelboard Operator Relationship Specialty Start Date End Date Corey Cervantes DO [address] [place] [address] PCP [facility] 11/11/24 Panelboard Operator Relationship Specialty Start Date End Date Corey Cervantes DO [address] [place] [address] PCP - [facility] 11/11/24 Goals (unrecognized section and content) Goals may be documented in a n alternate section FOR RECORDS PERTAINING TO PATIENTS WHO ARE OR HAVE BEEN ENROLLED IN A CHEMICAL DEPENDENCY/SUBSTANCEABUSE PROGRAM, SOME INFORMATION MAY BE OMITTED. This clinical summary was aggregated from multiple sources. Caution should be exercised in using it in the provision of clinical care. This summary normalizes information from multiple sources, and as a consequence, information in this document may materially change the coding, format and clinical context of patient data. In addition, data may be omitted in some cases. CLINICAL DECISIONS SHOULD BE BASED ON THE PRIMARY CLINICAL RECORDS. [facility]. provides no warranty or guarantee of the accuracy or completeness of information in this document.
[2025-08-13 12:08] LABS: Albumin 4.0 g/dL (2.9-4.4); Alpha-1-Globulin 0.2 g/dL (0.0-0.4); Alpha-2-Globulin 0.7 g/dL (0.4-1.0); Anti-CCP Ab, IgG/IgA 10 units (0-19); Gamma Globulin 0.8 g/dL (0.4-1.8)
== END 2025-08-11 15:12 | disposition home or self-care (01) ==
LOC: LAB 15:12
DX: R76.8 Other specified abnormal immunological findings in serum (principal)
CPT/HCPCS: 36415; 81001; 84155; 84165; 85652; 86140; 86200; 86225; 86235; 86431

== ENCOUNTER 2025-09-16 14:08 | Outpatient (OUT) | payer OTHER, SELFPAY ==
--- OUTSIDE RECORDS SUMMARY | 2025-09-16 14:13 | XMS_ITS | CCD ---
Author Organization [facility] Care Team Providers Care Time Study Analyst Name Role Phone Florentino, Olri Unavailable Unavailable Florentino, Loir Unavailable Unavailable Charisma Sultana Unavailable Enio Frias Primary Care Provider Cheli Roberts Unavailable DAVE GARZA Admitting Unavailable DAVE GARZA Attending Unavailable MISGrant, DR SZYMANSKI Primary Care Unavailable [place], DR CHRISTI Gallego Consulting Unavailable DAVE GARZA [...] Care Provider Timmy Cervantes DO Attending Provider [phone] Timmy Cervantes Attending Unavailable Timmy Cervantes Primary [...] CERVANTES Attending Unavailable COREY CERVANTES Referring Unavailable JILLIAN SHORE Attending Unavailable OH ZARATE Attending Unavailable COREY CERVANTES Attending Unavailable COREY CERVANTES Referring Unavailable JILLIAN SHORE Referring Unavailable COREY CERVANTES Attending Unavailable Allergies Allergy Classification Reported Allergen(s) Allergy Type Date of Onset Reaction(s) Facility (3 sources) Other Allergy to substance (disorder) ct scan dye [facility] (1 source) -No Known Food Allergies Allergy to substance (disorder) [facility] (3 sources) Metrizamide Drug allergy rumr: turn off the lights Other (20 sources) Iodinated Contrast Media Drug Allergy 8 [facility] (1 source) Iodinated Contrast Media Drug allergy (disorder) 2 [facility] Repository Medications Current Medications Medication Drug Class(es) Dates Sig (Normalized) Sig (Original) [id number] actuat albuterol 0.09 mg/actuat metered dose [...] daily for 30 DAYS 02/11/2024 11/11/2024 Discontinued cetirizine hydrochloride 10 mg oral tablet (2 sources) Histamine-1 Receptor Antagonist Start: 5 End: 6 take 1 tablet by mouth once daily cetirizine (ZyrTEC) 10 MG tablet Indications: Allergic contact dermatitis, unspecified trigger Take 1 tablet (10 mg) by mouth Daily 30 tablet 2 09/09/2025 12/08/2025 Active cyclobenzaprine hydrochloride 5 mg oral tablet (2 sources) Muscle Relaxant Start: End: take 1 tablet by mouth three times [...] 30 tablet 3 11/11/2024 11/11/2025 Active methylPREDNISolone (3 sources) Corticosteroid Start: 09-09-2025 methylPREDNISolone (Medrol Dospak) 4 MG tablets Indications: Allergic contact dermatitis, unspecified trigger Follow schedule on package instructions 21 tablet 09/09/2025 Active Start: 11-12-2022 methylPREDNISo lone 4 MG as directed Orally Once a day for 6 days Nov, Active probiotic (3 sources) probiotic as dir ected Active taurine 500 mg oral tablet (3 sources) take 2 capsules by m outh once daily at bedtime Taurine 500 MG 2 caps Orally qhs Active thyroid (detention) 60 mg oral tablet (20 sources) Start: 06-10-2025 take 1 tablet by mouth once daily Skipwith Thyroid 60 MG tablet Indications: Sebastián's thyroiditis Take 1 tablet (60 mg) by mouth Daily DISPENSE BRAND 30 tablet 3 06/10/2025 Active Start: 04-22-2025 take 1 tablet by kofi th once daily thyroid (Skipwith Thyroid) 60 MG tablet Indications: Sebastián's thyroiditis (CMS/HCC) Take 1 tablet (60 mg) by mouth Daily 30 tablet 3 04/22/2025 Active Start: 05-27-2018 End: 11-11-2024 take 1 tablet by mouth once daily thyroid (Skipwith Thyroid) 60 MG tablet Indications: Sebastián's thyroiditis (CMS/HCC) Take 1 tablet (60 mg) by mouth Daily 30 tablet 3 11/11/2024 Active Comment on above: Take 1 tablet by kofi th once daily. levothyroxine sodium 0.075 mg oral tablet (17 sources) l-Thyroxine Start: 4 End: 4 take 1 tablet by mouth in the morning levothyroxine (Synthroid, Levoxyl) 75 MCG tablet Take 75 mcg by mouth in the morning. Take on an empty stomach.. 02/19/2024 11/11/2024 Discontinued take 1 tablet by kofi th once daily in the morning Levothyroxine Sodium 75 MCG 1 tablet in the morning on an empty stomach Orally Once a day Active triamcinolone acetonide 1 mg/ml topical cream (2 sources) Corticosteroid Start: 09-09-2025 triamcinolone (Kenalog) 0.1 % cream Indications: Allergic contact dermatitis, unspecified trigger Apply topically in the morning and before bedtime. 45 g 09/09/2025 Active liothyronine sodium 0.005 mg oral tablet [...] Problem Classification Problem Date Documented Date Episodic/Chronic Allergic reactions (2 sources) Allergic contact dermatitis; Translations: [Allergic contact dermatitis, unspecified cause] 09-09-2025 Episodic Cataract (20 sources) Bilateral age-related nuclear cataracts; [...] IN RIGHT FOOT] Onset: 3 Episodic Other connective tissue disease (4 sources) Pain of right calf; Translations: [Pain in right lower leg] 08-20-2025 Episodic Other fractures (10 sources) Compression fracture of thoracic spine; Translations: [Wedge compression fracture of unspecified thoracic vertebra, initial encounter for closed fracture] 01-07-2025 Episodic Other fractures (1 source) Wedge compression fracture of unspecified thoracic vertebra, initial encounter for closed fracture; Translations: [Wedge compression fracture of unspecified thoracic vertebra, initial encounter for closed fracture] Onset: Episodic Other lower respiratory disease (4 sources) Cough; Translations: [Cough] Episodic Other non-traumatic joint disorders (2 sources) Joint pain; Translations: [Pain in unspecified joint] 05-04-2025 Episodic Other nutritional; endocrine; and metabolic disorders (20 sources) Hypercalcemia; Translations: [Hypercalcemia] Onset: 8 11-11-2024 Chronic Other skin disorders (1 source) Swelling, mass, [...] Unspecified acquired hypothyroidism; Translations: [Acquired hypothyroidism] Onset: 8 Chronic Thyroid disorders (1 source) Atrophy of [...] right eye, upper and lower eyelids] Onset: 12-03-2024 12-03-2024 Episodic Mycoses (4 sources) Tinea unguium; Translations: [TINEA UNGUIUM] Onset: 08-23-2022 Episodic Other screening for suspected conditions (not mental disorders or infectious disease) (10 sources) Decreased vitamin D; Translations: [Other specified abnormal findings of blood chemistry] Onset: 04-22-2025 05-04-2025 Episodic Unclassified (1 source) Cough R05.9 Onset: 12-19-2021 Resolved: 12-19-2021 Unclassified (1 source) Acute right-sided low back pain without sciatica M54.50 Onset: 12-19-2021 Resolved: 12-19-2021 Viral infection (1 source) COVID-19 Onset: 12-19-2021 Resolved: 12-19-2021 Results Test Name Value Interpretation Reference Range Facility US.doppler Lower extremity v ein - righton 08-20-2025 No acute DVT of the right leg. Superficial thrombophlebitis at the area of lump. ELECTRONICALLY SIGNED BY: Blas Montenegro MD IMAGING HISTORY: Calf pain. Lump. COMPARISON: None. TECHNIQUE: The right lower extremity veins were evaluated with color Doppler, grayscale imaging, and spectral analysis while using compression and augmentation when possible. RESULT: Evaluation of the right lower extremity veins from the thigh to the calf shows normal phasic flow, and normal augmentation of the Doppler signal, and normal compression of the deep veins. There is no sonographic evidence for acute deep venous thrombosis from the right groin to the popliteal region. There is no sonographic evidence for acute deep vein thrombosis in the right calf veins. At the area of lump there is a noncompressible superficial vessel with thrombus, consistent with superficial thrombophlebitis. IMAGING Blas Montenegro M D - 08/20/2025 HISTORY: Calf pain. Lump. COMPARISON: None. TECHNIQUE: The right lower extremity veins were evaluated with color Doppler, grayscale imaging, and spectral analysis while using compression and augmentation when possible. RESULT: Evaluation of the right lower extremity veins from the thigh to the calf shows normal phasic flow, and normal augmentation of the Doppler signal, and normal compression of the deep veins. There is no sonographic evidence for acute deep venous thrombosis from the right groin to the popliteal region. There is no sonographic evidence for acute deep vein thrombosis in the right calf veins. At the area of lump there is a noncompressible superficial vessel with thrombus, consistent with superficial thrombophlebitis. IMPRESSION: No acute DVT of the right leg. Superficial thrombophlebitis at the area of lump. ELECTRONICALLY SIGNED BY: Blas Montenegro MD [facility] Radiology Study observation (narrative) [facility] US.doppler Lower extremity v ein - rightOrdered By: Blas Montenegro on 08-20-2025 [facility] [employer] Work Phone: [facility] US LOWER EXTREMITY VENO US DUPLEX RIGHTon 08-20-2025 [facility] US LOWER EXTREMITY VENOUS DUPLEX RIGHT HISTORY: Calf pain. Lump. COMPARISON: None. TECHNIQUE: The right lower extremity veins were evaluated with color Doppler, grayscale imaging, and spectral analysis while using compression and augmentation when possible. RESULT: Evaluation of the right lower extremity veins from the thigh to the calf shows normal phasic flow, and normal augmentation of the Doppler signal, and normal compression of the deep veins. There is no sonographic evidence for acute deep venous thrombosis from the right groin to the popliteal region. There is no sonographic evidence for acute deep vein thrombosis in the right calf veins. At the area of lump there is a noncompressible superficial vessel with thrombus, consistent with superficial thrombophlebitis. IMPRESSION: No acute DVT of the right leg. Superficial thrombophlebitis at the area of lump. ELECTRONICALLY SIGNED BY: Blas Montenegro MD Normal Not Available XR pre/post mri xrayon 04-08 XR pre/post mri xray [facility] [employer] [address] [place] [address] MRI Report Signed Patient: Danielle Santana MR#: [id number] 9 : 1960 Acct:[id number] Age/Sex: 65 / F ADM Date: 04/07/25 Loc: [facility] Room: Type: [facility] Attending Dr: Timmy Cervantes DO Copies to: Clara Cervantes Jr, DO Ordering Provider: Clara Cervantes Jr, DO Date of Service: 04/07/25 MR/MR thoracic spine wo con: S22.00A ([id number]) XR/XR pre/post mri xray: THORACIC MRI MRI [...] open magnet system with less than optimal zbkvgo-rv-byvht ratio which degrades Imaging quality. The cervical thoracic junction is poorly evaluated due to suboptimal jtjzpp-zx-sukqv ratio. There is minimal superior plate compression [...] Elder M.D. 04/08/2025 9:05 AM Dictation Location: [place] [address] Transcribed By: [facility] 04/08/25 0905 Dictated By: Washington Elder MD 04/08/25 0856 Signed By: 04/08/25 0905 Normal [facility] XR THORACIC SPINE 3 VIEWSon [...] 11-12-2022 FLUAV Ab CF (S) [Titer] Negative [employer] [facility] [employer] Other FLUBV Ab CF (S) [Titer] Negative [employer] Other SGOTon 08-23-2022 AST [Catalytic activity/Vol] 12 U/L Critically low 15-37 [facility] Comment on above: Performed By: #### A LT, AST #### [facility] [address] [place] [address] [address] Bess Fraire SGPTon 08-23-2022 ALT [Catalytic activity/Vol] 24 U/L Normal 14-59 [facility] Comment on above: Performed By: #### A LT, AST #### [facility] [address] [place] [address] Dr. Bess Fraire VIT D 25-OH LABCORPon 2021 Vitamin D, 25-Hydroxy 30.2 ng/mL Normal 30.0-100.0 [facility] Comment on above: Result Comment: Yessenia min D deficiency has been defined by the [place] of [employer] and an Endocrine Society practice guideline as a level of serum 25-OH vitamin D less than 20 ng/mL (1,2). The Endocrine Society went on to further define vitamin D insufficiency as a level between 21 and 29 ng/mL (2). 1. IOM ([place] of [employer]). 2010. Dietary reference intakes for calcium and D. [place]: The National Academies Press. 2. Damon MF, Ryan NC, Jace CASH, et al. Evaluation, treatment, and prevention of vitamin D deficiency: an Endocrine Society clinical practice guideline. JCEM. 2010; 96(7):1911-30. Performed By: #### V ITADLC #### [facility] [address] [place] [address] Dr. Bess Fraire FREE T3on 08-09-2022 FREE T3 1.75 pg/mlL Critically low 2.18-3.98 [facility] Comment on above: Performed By: #### F T3, TSH #### [facility] [address] [address] [address] Bess Fraire FREE T4on 08-09-2022 Free T4 [Mass/Vol] 1.02 ng/dL Normal 0.76-1.46 [facility] Comment on above: Performed By: #### F T4 #### [facility] [address] [address] [address] Bess Fraire TSHon 08-09-2022 TSH 1.615 uIU/mL Normal 0.358-3.740 [facility] Comment on above: Performed By: #### F T3, TSH #### [facility] [address] [address] [address] Bess Fraire COVID + FLU Quick Testingon 12-19-2021 COVID + FLU Quick Testing Positive [employer] Other COVID + FLU Quick Testing Negative [employer] Other Urinalysis - AUTOMATEDon Appearance (U) clear [employer] Other Bilirubin Ql (U) Negative [employer] Other Color (U) yellow [employer] Other Glucose Ql (U) Negative [employer] Other Hemoglobin Ql (U) trace-intact [employer] Other Ketones Ql (U) Negative [employer] Other Leukocyte esterase Test strip Ql (U) Negative [employer] Other Nitrite Ql (U) Negative [employer] Other pH (U) 6.0 [pH] [employer] Other Protein Ql (U) Negative [employer] Other Specific gravity (U) [Rel density] 1.020 [employer] Other Urobilinogen (U) [Mass/Vol] 0.2 mg/dL [employer] Other CNOVon 07-13-2021 CNOV Office Visit (ENDOMN ) NERIS SANTANA ([id number]) 1960 F Date Time Provider Department 07/13/21 2:20 PM ABELINO BROWER ENDOMN During your visit today, we recorded the following information about you: Pulse Blood pressure Weight 74/minute 154/94 73.9 kg Aleksandar Moffett Ma 07/13/2021 2:08 PM Signed Thank you for choosing the [facility] Department of Endocrinology, Diabetes and Metabolism. Did you know that you need to call 48 hours in advance of your scheduled visit, if you are unable to make your appointment? The Endocrinology [facility] Metabolism [place] thanks you for your commitment, because patients not showing to their appointment results in a lost opportunity for patients to receive [facility] health care at the [facility]. To Cancel an appointment, please choose one of the following: - Call the Appointment Call Center at [phone] - From [employer], Go to Appointments ? Cancel Appts If cancelling, consider your need to reschedule to prevent further delays in your care. To Schedule an appointment, please choose one of the following: - Call the Appointment Call Center at [phone] - From [employer], Go to Appointments ? 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 Did you know that you need to call 48 hours in advance of your scheduled visit, if you are unable to make your appointment? The [facility]inology [facility] Met[facility] [place] thanks you for your commitment, because patients not showing to their appointment results in a lost opportunity for patients to receive [facility] health care at the [facility]. To Cancel an appointment, please choose one of the following: - Call the Appointment Call Center at [phone] - From [employer], Go to Appointments ? Cancel Appts If cancelling, consider your need to reschedule to prevent further delays in your care. To Schedule an appointment, please choose one of the following: - Call the Appointment Call Center at [phone] - From [employer], Go to Appointments ? Request an Appt Encounter Status:Closed by ABELINO BROWER on 06/19/[address] [facility] Free T4on 07-13-2021 Free T4 [Mass/Vol] 0.9 ng/dL Normal 0.9-1.[address] [facility] Comment on above: Performed By: #### T SH, FT4 #### [facility] [address] [place], [place] [address] T4 FREE/FREE THYROXon 2020 Free T4 [Mass/Vol] 0.9 ng/dL 0.9 - 1.7 ng/dL [facility] TSHon 07-13-2021 TSH Qn 2.410 m[IU]/L Normal 0.270-4.[address] [facility] Comment on above: Performed By: #### T SH, FT4 #### [facility] [address] [place], [place] [address] TSH BLDon 07-13-2021 TSH Qn 2.410 m[IU]/L 0.270 - 4.200 uU/mL [facility] Lab Reportson 02-17-2021 Lab Reports [id number] Normal [facility] Office/Clini c Noteon 10-20-2020 [...] No qualifying data Procedure/Surgical History None. Medications Skipwith Thyroid 60 mg Tab, 60 mg= 1 [...] trivalent - Not Given Patient Refuses Normal [facility] Comment on above: Result Comment: Elec [...] Document Reviewed: 02/15/2011 ExitCare? Patient Information ?2013 [employer] [facility]. Normal [facility] Thyroid Peroxidase(TPO) Abon 11-18-2018 Thyroid Peroxidase(TPO) Ab 215.0 IU/mL Critically high 0.0-35.0 [facility] Comment on above: Result Comment: [employer] [address] [place] [address] Basic Metabolic Panelon - Anion gap 3 molar conc 13 mmol/L Normal 7-13 [facility] Calcium mass conc 10.0 mg/dL Normal 8.6-10.2 [facility] Chloride molar conc 101 mmol/L Normal 98-107 [facility] CO2 molar conc 26 mmol/L Normal 22-29 [facility] Creatinine mass conc 0.46 mg/dL Low 0.50-0.90 [facility] GFR/1.73 sq M predicted among blacks MDRD vol rate/area (S/P/Bld) mL/min/{1.73_m2} Normal >60 [facility] Comment on above: Result Comment: >60 mL/min/1.73m2 EGFR, calc. for ages 18 and older using theMDRD formula (not corrected for weight), is valid for stablerenal function. GFR/1.73 sq M.predicted MDRD vol rate/area mL/min/{1.73_m2} Normal >60 [facility] Comment on above: Result Comment: >60 mL/min/1.73m2 EGFR, calc. for ages 18 and older using theMDRD formula (not corrected for weight), is valid for stablerenal function. Glucose mass conc 113 mg/dL Critically high 74-109 [facility] Potassium molar conc 4.3 mmol/L Normal 3.5-5.1 [facility] Sodium molar conc 140 mmol/L Normal 132-144 [facility] Urea nitrogen mass conc 13 mg/dL Normal 6-20 [facility] Cortisolon 11-14-2018 Cortisol 9.4 ug/dL Normal [facility] Comment on above: Result Comment: Refe rence Ranges: AM Specimen 6.2-19.4 ug/dL PM Specimen 2.3-11.9 ug/dL PTH, Intacton 11-14-2018 PTH, Intact 67.1 pg/mL Critically high 15.0-65.0 [facility] TSH w/out Reflexon 8 Thyrotropin Qn 1.610 uIU/mL Normal 0.270-4.20 [facility] Thyroxine Freeon 11-14-2018 Thyroxine Free 1.12 ng/dL Normal 0.93-1.70 [facility] Vitamin B12 and Folateon Cobalamin (Vitamin B12) mass conc 676 pg/mL Normal 232-1245 [facility] Folate 16.0 ng/mL Normal 7.3-26.1 [facility] Comment on above: Result Comment: As o f 16, the methodology has changed. Results fromthis methodology should not be compared with results fromprevious methodology. Vital Signs Date Time Vital Sign Value Performing Clinician Facility 09-09-2025 16:39-0400 Body height 160 cm Corey Cervantes DO Work Phone: [facility] 09-09-2025 16:39-0400 Body mass index (BMI) [Ratio] 28.87 kg/m2 Corey Cervantes DO Work Phone: [facility] 09-09-2025 16:39-0400 Body temperature 97.11 [degF] Corey Cervantes DO Work Phone: [facility] 09-09-2025 16:39-0400 Body weight 73.94 kg Corey Cervantes DO Work Phone: [facility] 09-09-2025 16:39-0400 Diastolic blood pressure 72 mm[Hg] Corey Cervantes DO Work Phone: [facility] 09-09-2025 16:39-0400 Heart rate 57 /min Corey Cervantes DO Work Phone: [facility] 09-09-2025 16:39-0400 SaO2% (BldA) [Mass fraction] 99 % Corey Cervantes DO Work Phone: [facility] 09-09-2025 16:39-0400 Systolic blood pressure 128 mm[Hg] Corey Cervantes DO Work Phone: [facility] 08-20-2025 11:37-0400 Body height 160 cm Jillian Shore JAR [employer]PER Work Phone: [facility] 08-20-2025 11:37-0400 Body mass index (BMI) [Ratio] 28.52 kg/m2 Jillian Shore [employer] Work Phone: [facility] 08-20-2025 11:37-0400 Body temperature 97 [degF] Jillian Shore JAR [employer] Work Phone: [facility] 08-20-2025 11:37-0400 Body weight 73.03 kg Jillian Shore JAR [employer] Work Phone: [facility] 08-20-2025 11:37-0400 Diastolic blood pressure 82 mm[Hg] Jillian Shore JAR [employer] Work Phone: [facility] 08-20-2025 11:37-0400 Heart rate 62 /min Jillian Shore [employer]AR [employer] Work Phone: [facility] 08-20-2025 11:37-0400 SaO2% (BldA) [Mass fraction] 99 % Jillian Shore JAR [employer] Work Phone: [facility] 08-20-2025 11:37-0400 Systolic blood pressure 120 mm[Hg] Jillian Shore [employer] Work Phone: [facility] 05-04-2025 14:57-0400 Body height 160 cm Corey Cervantes DO Work Phone: [facility] 05-04-2025 14:57-0400 Body mass index (BMI) [Ratio] 28.87 kg/m2 Corey Cervantes DO Work Phone: [facility] 05-04-2025 14:57-0400 Body temperature 97.11 [degF] Corey Cervantes DO Work Phone: [facility] 05-04-2025 14:57-0400 Body weight 73.94 kg Corey Cervantes DO Work Phone: [facility] 05-04-2025 14:57-0400 Diastolic blood pressure 86 mm[Hg] Corey Cervantes DO Work Phone: [facility] 05-04-2025 14:57-0400 Heart rate 64 /min Corey Cervantes DO Work Phone: [facility] 05-04-2025 14:57-0400 SaO2% (BldA) [Mass fraction] 98 % Corey Cervantes DO Work Phone: [facility] 05-04-2025 14:57-0400 Systolic blood pressure 118 mm[Hg] Corey Bradleyan DO Work Phone: [facility] 11-11-2024 10:41-0500 Body height 160 cm Corey Cervantes DO Work Phone: [facility] 11-11-2024 10:41-0500 Body mass index (BMI) [Ratio] 28.77 kg/m2 Corey Cervantes DO Work Phone: [facility] [employer] 11-11-2024 10:41-0500 Body temperature 96.91 [degF] Corey Cervantes DO Work Phone: [facility] [employer] 11-11-2024 10:41-0500 Body weight 73.66 kg Corey Cervantes DO Work Phone: [facility] 11-11-2024 10:41-0500 Diastolic blood pressure 80 mm[Hg] Corey Cervantes DO Work Phone: [facility] 11-11-2024 10:41-0500 Heart rate 64 /min Corey Cervantes DO Work Phone: [facility] 11-11-2024 10:41-0500 SaO2% (BldA) [Mass fraction] 98 % Corey Cervantes DO Work Phone: [facility] 11-11-2024 10:41-0500 Systolic blood pressure 132 mm[Hg] Corey Cervantes DO Work Phone: [facility] [employer] 11-12-2022 16:30-0500 Body height 172.72 cm Cheli Washingtonault Other [employer] Other 11-12-2022 16:30-0500 Body mass index (BMI) [Ratio] 24.02 kg/m2 Cheli Alejandra Other [employer] Other 11-12-2022 16:30-0500 Body temperature 98.3 [degF] Cheli Alejandra Other [employer] Other 11-12-2022 16:30-0500 Body weight 71.67 kg Cheli Alejandra Other [employer] Other 11-12-2022 16:30-0500 Respiratory rate 18 /min Cheli Alejandra Other [employer] Other 11-12-2022 16:30-0500 SaO2% (BldA) [Mass fraction] 97 % Cheli Roberts Other [facility] Other 12-19-2021 14:30-0500 Body height 172.72 cm Charisma Schwerer Other [facility] Other 12-19-2021 14:30-0500 Body mass index (BMI) [Ratio] 25.15 kg/m2 Charisma Schwerer Other [facility] Other 12-19-2021 14:30-0500 Body temperature 99 [degF] Charisma Schwerer Other [facility] Other 12-19-2021 14:30-0500 Body weight 75.03 kg Charisma Schwerer Other [facility] Other 12-19-2021 14:30-0500 Diastolic blood pressure 82 mm[Hg] Charisma Schwerer Other [facility] Other 12-19-2021 14:30-0500 SaO2% (BldA) [Mass fraction] 98 % Charisma Schwerer Other [facility] Other 12-19-2021 14:30-0500 Systolic blood pressure 122 mm[Hg] Charisma Schwerer Other [facility] Other 07-13-2021 14:08-0400 Body weight 73.94 kg Abelino Brower MD Work Phone: [facility] 07-13-2021 14:08-0400 Diastolic blood pressure 94 mm[Hg] Abelino Brower MD Work Phone: [facility] 07-13-2021 14:08-0400 Heart rate 74 /min Abelino Brower MD Work Phone: [facility] 07-13-2021 14:08-0400 Systolic blood pressure 154 mm[Hg] Abelino Brower MD Work Phone: [facility] 05-26-2018 18:05-0400 BP Diastolic 91 mm[Hg] [facility] 05-26-2018 18:05-0400 BP Systolic 150 mm[Hg] [facility] 05-26-2018 18:05-0400 Pulse (Heart Rate) 70 /min [facility] 05-26-2018 17:05-0400 BP Diastolic 91 mm[Hg] [facility] 05-26-2018 17:05-0400 BP Systolic 150 mm[Hg] [facility] 05-26-2018 17:05-0400 Pulse (Heart Rate) 70 /min [facility] Encounters Encounter Date Encounter Type Care Provider Facility Start: 09-09-2025 End: 09-09-2025 Office outpatient visit 15 minutes Corey Cervantes DO Work Phone: [facility] 230 Comment on above: Allergic contact yolanda matitis, unspecified trigger (Primary Dx) Start: 09-09-2025 End: 09-09-2025 ambulatory COREY CERVANTES Not Available Start: 08-20-2025 End: 08-20-2025 Bamboo flowsheet Jillian Shore NP Work Phone: [facility] 230 Start: 08-20-2025 End: 08-20-2025 Bamboo flowsheet Jillian Shore NP Work Phone: [facility] 230 Start: 08-20-2025 End: 08-20-2025 Office outpatient visit 25 minutes Jillian Shore JAR CAPPER Work Phone: [facility] 230 Comment on above: Right calf pain (Veda muñiz Dx) Start: 08-20-2025 End: 08-20-2025 ambulatory JILLIAN SHORE Not Available Start: 05-04-2025 End: 05-04-2025 Office outpatient visit 25 minutes Corey Cervantes DO Work Phone: [facility] 230 Comment on above: Prediabetes (Primary Dx); Hypothyroidism, unspecified type (CMS/HCC); Keratoconjunctivitis sicca of both eyes not specified as Sjogren's; Elevated antinuclear antibody (SAMARA) level; Parathyroid related hypercalcemia (CMS/HCC); Low vitamin D level; Arthralgia, unspecified joint; Sjogren's syndrome with keratoconjunctivitis sicca Start: 05-04-2025 End: 05-04-2025 ambulatory COREY CERVANTES Not Available Start: 05-04-2025 End: 05-04-2025 Bamboo flowsheet Corey Cervantes DO Work Phone: [facility] 230 Start: 05-04-2025 End: 05-04-2025 Bamboo flowsheet Corey Cervantes DO Work Phone: [facility] 230 Start: 04-22-2025 End: 04-22-2025 ambulatory COREY CERVANTES Not Available Start: 04-07-2025 End: 04-07-2025 Patient encounter procedure Timmy Cervantes DO Work Phone: [facility] [address] Work Phone: Start: 04-07-2025 End: 04-07-2025 ambulatory Timmy Cervantes DO Work Phone: [facility] Work Phone: Start: 03-12-2025 End: 03-12-2025 Telephone encounter Corey Cervantes DO Work Phone: [facility] 230 Comment on above: Referral Start: 02-24-2025 End: 02-24-2025 ambulatory Lemuel Brink JOGGER OPERATOR [facility] Comment on above: Compression fracture of body of thoracic vertebra (CMS/HCC) (Primary Dx); Acute bilateral thoracic back pain Start: 02-18-2025 End: 02-18-2025 Bamboo flowsheet Lemuel Brink JOGGER OPERATOR [facility] Start: 02-18-2025 End: 02-18-2025 Bamboo flowsheet Lemuel Brink JOGGER OPERATOR [facility] Start: 02-18-2025 End: 02-18-2025 ambulatory Lemuel Brink JOGGER OPERATOR [facility] Comment on above: Compression fracture of body of thoracic vertebra (CMS/HCC) (Primary Dx); Acute bilateral thoracic back pain Start: 02-10-2025 End: 02-11-2025 ambulatory Lemuel Brink JOGGER OPERATOR [facility] Comment on above: Compression fracture of body of thoracic vertebra (CMS/HCC) (Primary Dx); Acute bilateral thoracic back pain Start: 02-10-2025 End: 02-10-2025 Bamboo flowsheet Lemuel Brink JOGGER OPERATOR [facility] Start: 02-10-2025 End: 02-10-2025 Bamboo flowsheet Lemuel Brink JOGGER OPERATOR [facility] Start: 02-05-2025 End: 02-05-2025 ambulatory LEMUEL ECOHLSINK Not Available Start: 01-29-2025 End: 01-29-2025 Bamboo flowsheet Lemuel Brink JOGGER OPERATOR [facility] Start: 01-29-2025 End: 01-29-2025 Bamboo flowsheet Lemuel Brink JOGGER OPERATOR [facility] Start: 01-29-2025 End: 01-29-2025 ambulatory Lemuel Brink JOGGER OPERATOR [facility] Comment on above: Compression fracture of body of thoracic vertebra (CMS/HCC) (Primary Dx); Acute bilateral thoracic back pain Start: 01-27-2025 End: 01-27-2025 ambulatory Lemuel Brink JOGGER OPERATOR [facility] Comment on above: Compression fracture of body of thoracic vertebra (CMS/HCC) (Primary Dx); Acute bilateral thoracic back pain Start: 01-27-2025 End: 01-27-2025 Bamboo flowsheet Lemuel Brink JOGGER OPERATOR [facility] Start: 01-27-2025 End: 01-27-2025 Bamboo flowsheet Lemuel Brink JOGGER OPERATOR [facility] Start: 01-22-2025 End: 01-22-2025 ambulatory Lemuel Brink JOGGER OPERATOR [facility] Comment on above: Compression fracture of body of thoracic vertebra (CMS/HCC) (Primary Dx); Acute bilateral thoracic back pain Start: 01-21-2025 End: 01-21-2025 Bamboo flowsheet Lemuel Brink JOGGER OPERATOR [facility] Start: 01-21-2025 End: 01-21-2025 Bamboo flowsheet Lemuel Brink JOGGER OPERATOR [facility] Start: 01-21-2025 End: 01-21-2025 ambulatory Lemuel Brink JOGGER OPERATOR [facility] Comment on above: Compression fracture of body of thoracic vertebra (CMS/HCC) (Primary Dx); Acute bilateral thoracic back pain Start: 01-13-2025 End: 01-13-2025 Bamboo flowsheet Lemuel Brink JOGGER OPERATOR [facility] Start: 01-13-2025 End: 01-13-2025 Bamboo flowsheet Lemuel Brink JOGGER OPERATOR [facility] Start: 01-13-2025 End: 01-13-2025 ambulatory Lemuel Brink JOGGER OPERATOR [facility] Comment on above: Compression fracture of body of thoracic vertebra (CMS/HCC) (Primary Dx); Acute bilateral thoracic back pain Start: 01-11-2025 End: 01-11-2025 Bamboo flowsheet Lemuel Brink JOGGER OPERATOR [facility] Start: 01-11-2025 End: 01-11-2025 Bamboo flowsheet Lemuel Brink JOGGER OPERATOR [facility] Start: 01-11-2025 End: 01-11-2025 ambulatory Lemuel Brink JOGGER OPERATOR [facility] Comment on above: Compression [...] CERVANTES Not Available Start: 11-04-2024 End: 11-04-2024 Julianna Peña COT Work Phone: [facility] Comment on above: Keratoconjunctivitis sicca of both eyes not specified as Sjogren's (Primary Dx) Start: 11-03-2024 End: 11-03-2024 ambulatory [place] ZARATE Not Available Start: 11-03-2024 End: 11-03-2024 Bamboo flowsheet Oh Zarate DO Work Phone: [facility] Start: 11-03-2024 End: 11-03-2024 Bamboo flowsheet Oh Zarate DO Work Phone: [facility] Start: 03-06-2023 End: 03-07-2023 ambulatory DAVE GARZA Facility:[facility] Start: 11-12-2022 End: 11-12-2022 ambulatory Cheli Roberts Other [facility] Other Start: 11-12-2022 Office outpatient vi sit 15 minutes Cheli Roberts [facility] [place] Start: 08-23-2022 End: 08-24-2022 ambulatory [place]HLOE [place] Facility:[facility] Start: 08-09-2022 End: 08-10-2022 ambulatory IVONNE [place] Facility:[facility] Start: 12-28-2021 End: 12-28-2021 ambulatory Charisma Schwerer Other [facility] Other Start: 12-28-2021 Telephone encounter Charisma Schwerer [facility] [place] Start: 12-21-2021 End: 12-21-2021 ambulatory Charisma Schwerer Other [facility] Other Start: 12-21-2021 Telephone encounter Charisma Schwerer [facility] [place] Start: 12-19-2021 End: 12-19-2021 ambulatory Charisma Schwerer Other [facility] Other Start: 12-19-2021 Office outpatient vi sit 15 minutes Charisma Schwerer [facility] [place] Start: 07-13-2021 End: 07-13-2021 Patient encounter procedure Abelino Brower MD Work Phone: Endocrinology Comment on above: 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 (Primary Dx) Start: 10-22-2018 Dental examination Lori Florentino [facility] Start: 10-22-2018 Dental Lori Good Other [email or web address] [facility] Start: 05-26-2018 Dental examination Lori Good [facility] Start: 05-26-2018 End: 05-26-2018 Dental Fannie Avalos Other [email or web address] [facility] Start: 01-14-2018 Dental examination Lori Good [facility] Start: 01-14-2018 End: 01-14-2018 Dental Sreekanth Chávez Other Le[facility] Procedures Date Procedure Procedure Detail Performing Clinician Start: 08-20-2025 Dup-scan xtr veins unilateral/limited study Jillian Shore NP Work Phone: Start: 11-03-2024 End: 11-03-2024 Ophth medical xm&eval comprhnsv estab pt 1/> Keratoconjunctivitis [...] Screening for malign ant neoplasm of colon [facility] Start: 08-20-2025 End: 08-20-2025 Patient encounter procedure 08/20/2025 11:20 AM EDT Office Visit [facility] [address] [place] [address] Jillian Shore, JAR CAPPER [address] [place] [address] Arrived [facility] 230 Comment on above: Arrived Start: 08-02-2025 Influenza vaccination [facility] Start: 05-04-2025 End: 05-04-2025 Patient encounter procedure 05/04/2025 3:00 PM EDT Office Visit [facility] [address] [place] [address] Corey Cervantes DO [address] [place] [address] Arrived [facility] 230 Comment on above: Arrived Start: 04-07-2025 MR Thoracic spine [facility] Start: 04-07-2025 MR thoracic spine wo con MR th oracic spine wo con [facility] Start: 04-07-2025 XR pre/post mri xray XR pre/post mri xray [facility] Start: 04-07-2025 [facility] Start: 02-17-2025 End: 02-17-2025 ambulatory 02/17/2025 10:00 AM EDT Treatment [facility] [address] [place] [address] Lemuel Barnett, JOGGER OPERATOR [facility] Start: 02-05-2025 End: 02-05-2025 ambulatory 02/05/2025 10:00 AM EST Treatment [facility] [address] [place] [address] Lemeul Barnett JOGGER OPERATOR [facility] Start: 02-03-2025 End: 02-03-2025 ambulatory 02/03/2025 2:00 PM EST Treatment [facility] [address] [place] [address] Lemuel Barnett JOGGER OPERATOR [facility] Start: 01-29-2025 End: 01-29-2025 ambulatory [facility] Start: 01-27-2025 End: 01-27-2025 ambulatory 01/27/2025 3:30 PM EST Treatment [facility] [address] [place] [address] Lemuel Barnett JOGGER OPERATOR [facility] Start: 01-22-2025 End: 01-22-2025 ambulatory 01/22/2025 9:30 AM EST Treatment [facility] [address] [place] [address] Lemuel Barnett JOGGER OPERATOR [facility] Start: 01-21-2025 End: 01-21-2025 ambulatory 01/21/2025 10:30 AM EST Treatment [facility] [address] [place] [address] Lemuel Barnett PTA Arrived [facility] Comment on above: Arrived Start: 01-20-2025 End: 01-20-2025 ambulatory 01/20/2025 2:00 PM EST Treatment [facility] [address] [place] [address] Lemuel Barnett PTA [facility] Start: 01-13-2025 End: 01-13-2025 ambulatory 01/13/2025 1:00 PM EST Treatment [facility] [address] [facility] [address] [place] [address] Lemuel Barnett PTA Arrived [facility] Comment on above: Arrived Start: 01-11-2025 End: 01-11-2025 ambulatory 01/11/2025 1:00 PM EST Treatment [facility] [address] [facility] [address] [place] [address] Lemuel Barnett PTA [facility] Start: 01-07-2025 End: 01-07-2025 ambulatory 01/07/2025 3:30 PM EST Evaluation [facility] [address] [facility] [address] [place] [address] Jayro Samuels, PT [address] [facility] [address] [place] [address] Compression fracture of body of thoracic vertebra [...] type (CMS/HCC) Expected: 11/11/2024 (Approximate), Expires: 11/11/2025 [facility] Comment on above: Expected: 11/11/2024 (Approximate), Expires: 11/11/2025 Start: 11-11-2024 End: 11-11-2025 Comprehensive metabolic 2000 panel - Serum or Plasma Comprehensive metabolic panel Lab Routine Sebastián's thyroiditis (CMS/HCC) Acute bilateral thoracic back pain Parathyroid related hypercalcemia (CMS/HCC) Hypothyroidism, unspecified type (CMS/HCC) Hypertension, unspecified type (CMS/HCC) Expected: 11/11/2024 (Approximate), Expires: 11/11/2025 [facility] Comment on above: Expected: 11/11/2024 (Approximate), Expires: 11/11/2025 Start: 11-11-2024 End: 11-11-2025 Lipid 1996 panel - Serum or Plasma Lipid panel Lab Routine Hypertension, unspecified type (CMS/HCC) Expected: 11/11/2024 (Approximate), Expires: 11/11/2025 [facility] Comment on above: Expected: 11/11/2024 (Approximate), Expires: 11/11/2025 Start: 11-11-2024 End: 11-11-2025 Parathyrin.intact [Mass/volume] in Serum or Plasma PTH, intact Lab Routine Parathyroid related hypercalcemia (CMS/HCC) Expected: 11/11/2024 (Approximate), Expires: 11/11/2025 [facility] Comment on above: Expected: 11/11/2024 (Approximate), Expires: 11/11/2025 Start: 11-11-2024 End: 11-11-2025 Thyrotropin [Units/volume] in Serum or Plasma TSH Lab Routine Sebastián's thyroiditis (CMS/HCC) Hypothyroidism, unspecified type (CMS/HCC) Expected: 11/11/2024 (Approximate), Expires: 11/11/2025 [facility] Work Phone: Comment on above: Expected: 11/11/2024 (Approximate), Expires: 11/11/2025 Start: 11-11-2024 End: 11-11-2025 Thyroxine (T4) free [Mass/volume] in Serum or Plasma T4, free Lab Routine Sebastián's thyroiditis (CMS/HCC) Hypothyroidism, unspecified type (CMS/HCC) Expected: 11/11/2024 (Approximate), Expires: 11/11/2025 [facility] Comment on above: Expected: 11/11/2024 (Approximate), Expires: 11/11/2025 Start: 11-11-2024 End: 11-11-2025 Triiodothyronine (T3) [Mass/volume] in Serum or Plasma T3 Lab Routine Sebastián's thyroiditis (CMS/HCC) Hypothyroidism, unspecified type (CMS/HCC) Expected: 11/11/2024 (Approximate), Expires: 11/11/2025 [facility] Comment on above: Expected: 11/11/2024 (Approximate), Expires: 11/11/2025 Start: 11-11-2024 End: 11-11-2025 XR Thoracic spine 3 Views XR thoracic spine 3 views Imaging Routine Acute bilateral thoracic back pain Expected: 11/11/2024, Expires: 11/11/2025 [facility] Comment on above: Expected: 11/11/2024 , Expires: 11/11/2025 Start: 11-11-2024 End: 11-11-2024 Patient encounter procedure 11/11/2024 10:40 AM EST Office Visit [facility] [address] [place] [address] Corey Cervantes DO [address] [place] [address] Arrived [facility] 230 Comment on above: Arrived Start: 11-03-2024 End: 11-03-2024 Patient encounter procedure 11/03/2024 2:30 PM EST Office Visit [facility] [address] [place] [id number] Oh Zarate DO [address] [place] [address] Arrived [facility] Comment on above: Arrived Start: 08-02-2024 Influenza vaccination Influenza Vacc ine (#1) [facility] Start: 08-02-2022 Influenza vaccination INFLUENZA (#1) [facility] Start: 01-17-2021 DIABETES SCREEN DIABETES SCREEN [facility] Start: 2012 SHINGRIX VACCINE (1 of 2) BURGESS GRIX VACCINE (1 of 2) [facility] Start: 2007 COLOGUARD (FIT-DNA) COLOGUARD (FIT-D NA) [facility] Start: 2007 Colonoscopy COLONOSCOPY [facility] Start: 2007 COLORECTAL CANCER SCREENING COLORECTAL CANCER SCREENING [facility] Start: [address] COLONOGRAPHY [facility] Start: 2007 FECAL OCCULT BLOOD FECAL OCCULT BLOO D [facility] Start: 2007 LIPID SCREEN LIPID SCREEN [facility] Start: 2007 SIGMOIDOSCOPY SIGMOIDOSCOPY [facility] Start: 2002 Mammography MAMMOGRAM [facility] Start: 2002 Screening for malign ant neoplasm of breast Mammogram [facility] Start: 1992 HPV TESTING HPV TESTING [facility] Start: 1992 Screening for malign ant neoplasm of cervix [facility] Start: 1983 PAP TESTING PAP TESTING [facility] Start: 1983 Screening for malign ant neoplasm of cervix Pap Smear [facility] Start: 1981 Urine microalbumin profile DTAP,TDAP ,TD (1 - Tdap) [facility] Start: 1980 HEPATITIS C SCREENING HEPATITIS C [facility] Start: 1980 HIV SCREENING HIV SCREENING [facility] Start: 1974 Adult depression scr eening assessment DEPRESSION SCREENING [facility] Start: 1963 Skin Cancer Screening Skin Cancer [facility] Start: 1962 COVID-19 VACCINE (#1) COVID-19 VACCI NE (#1) [facility] Start: 1962 Screening for malign ant neoplasm of colon [facility] Healthcare Payers Date Payer Category Payer Self-pay 1959 Medicaid [id number] 1959 Unknown [id number] 2017 Medicaid [facility] [id number] 2017-Present [phone] [address] [place] [address] Medicaid [id number] 2014 Private Health Insurance [facility] MEDICAID [id number] 1962 Unknown [id number] [id number]. 593 1962 Unknown [id number] 2.16840.1.790567.3.579.2. 593 1962 Unknown [id number] 2.16.840.1.891006.3.579.2. 593 1962 Unknown [id number] 2.16.840.1.102704.3.579.2. 1259 1962 Unknown [id number] 2.16840.1.726395.3.579.2. 1259 1962 Unknown [id number] 2.16.840.1.953009.3.579.2. 1259 1962 Unknown [id number] 2.16.840.1.584048.3.579.2. 1259 1962 Unknown [id number] 2.16.840.1.832892.3.579.2. 1259 1962 Unknown [id number] 2.16.840.1.144479.3.579.2. 1259 1962 Unknown [id number] 2.16.840.1.113687.3.579.2. 125 1962 Unknown [id number] 2.16.840.1.057356.3.579.2. 1258 1962 Unknown [id number] 2.16.840.1.337028.3.579.2. 1258 1962 Unknown [id number] 2.16.840.1.306993.3.579.2. 1258 1962 Unknown [id number] 2.16.840.1.877820.3.579.2. 1258 1962 Unknown [id number] 2.16.840.1.175191.3.579.2. 1258 1962 Unknown [id number] 2.16.840.1.509066.3.579.2. 1258 1962 Unknown [id number] 2.16.840.1.623789.3.579.2. 1258 1962 Unknown [id number] 2.16.840.1.808490.3.579.2. 1258 1962 Unknown [id number] 2.16.840.1.500567.3.579.2. 9 1962 Unknown [id number] 2.16.840.1.187165.3.579.2. 1258 1962 Unknown [id number] 2.16.840.1.215407.3.579.2. 125 1962 Unknown [id number] 2.16.840.1.240674.3.579.2. 125 Unknown [id number] 2.16.840.1.929697.3.579.2. 531 Social History Date Type Detail Facility Start: [facility] Start: 05-28-2024 End: 09-09-2025 Sex Assigned At [place] [employer] Other Start: 05-28-2024 Tobacco smoking status NHIS Never smoked tobacco [facility] Start: 07-13-2021 End: 09-09-2025 Alcohol intake Current drinker of alcohol (finding) [facility] Start: 1960 Sex Assigned At Not on file [facility] Start: 06-13-2021 End: 07-13-2021 Exposure to SARS-CoV-2 (event) Not sure [facility] Start: 05-28-2024 Tobacco use and exposure Smokeless tobacco non-user [facility] Start: 05-28-2024 End: 09-09-2025 History of Social function [facility] Start: 11-11-2024 Alcohol Comment a little [facility] Tobacco smoking status NHIS Unknown if ever smoked [facility] Work Phone: Start: 04-08-2025 Sex Female (finding) [facility] Start: 1960 Sex Assigned At Female F [facility] Functional Status Date Assessment Result Facility 09-09-2025 Patient Health Quest ionnaire 2 item (PHQ-2) [Reported] [facility] 08-20-2025 Patient Health Quest ionnaire 2 item (PHQ-2) [Reported] [facility] 05-04-2025 Patient Health Quest ionnaire 2 item (PHQ-2) [Reported] [facility] Clinical Notes 07-13-2021 to 09-09-2025 Corey Cervantes, - 09/09/2025 4:40 PM Tenzin Shore NP - 08/20/2025 11:20 AM Hilda Cervantes, - 05/04/2025 3:00 PM EDTTelephone Encounter - Jessica Munoz - 03/12/2025 9:55 AM EDT Note Date & Type Note Facility 09-09-2025 History of Present illness Narrative Images from the original note were not included. Subjective ?Quick Links Last Note in Specialty Snapshot Current Meds Patient ID: Neris Santana is a 65 y.o. female who presents for Rash. Subjective Neris Santana is a 65 y.o. female who presents for evaluation of a rash involving the arms and on sides. Rash started 1 week ago Lesions are red, and raised in texture. Patient has had new exposures (soaps, lotions, laundry detergents, foods, medications, plants, insects or animals). Pt states she was working out in the yard and noticed a day or 2 after. Has tried joselo dry and hydrocortisone cream with no relief. Would like to review rheumatology results. Medication Documentation Review Audit Reviewed by Lynda Mi MA (Manager Art) on 08/20/25 at 1136 Medication Order Taking? Sig Documenting Provider Last Dose Status Skipwith Thyroid 60 MG tablet [id number] Yes Take 1 tablet (60 mg) by mouth Daily [employer] Corey Cervantes, DO Active Restasis 0.05 % ophthalmic emulsion [id number] Yes Administer 1 drop into both eyes every 12 (twelve) hours Corey Cervantes, DO Active Review of Systems ?Quick Review Review Full History Meds - Skipwith Thyroid 60 MG tablet Restasis 0.05 % ophthalmic emulsion --- PMH - Dry eyes Sebastián's disease HTN (hypertension) Hypothyroid Vitamin D deficiency Objective ?Quick Links Timeline (Adult) Labs Imaging Results Review Trend Vitals ?? Avoid pulling in long tables of results. Comment on relevant results to support your medical decision making. There were no vitals taken for this visit. Physical Exam Constitutional: Appearance: Normal appearance. HENT: [...] Skin: General: Skin is warm and dry. Comments: Right forearm and lateral abd navin scaly erytehmatous prurutic patches Neurological: General: No focal deficit present. Mental Status: She is alert and oriented to person, place, and time. Psychiatric: Mood and Affect: Mood normal. Thought Content: Thought content normal. Judgment: Judgment normal. ?Quick Links Full Problem List Allergy Cardiology GI Hypertension Thyroid Assessment & Plan Allergic contact dermatitis, unspecified trigger Should improve with the above prescribed medications. Call if not improved despite treatment. Orders: methylPREDNISolone (Medrol Dospak) 4 MG tablets; Follow schedule on package instructions cetirizine (ZyrTEC) 10 MG tablet; Take 1 tablet (10 mg) by mouth Daily triamcinolone (Kenalog) 0.1 % cream; Apply topically in the morning and before bedtime. documented in this encounter [facility] 08-20-2025 History of Present illness Narrative Images from the original note were not included. SUBJECTIVE: Neris Santana is a 65 y.o. female presents with chief complaint of No chief complaint on file. Pt is in office today for a lump in her right calf. She states yesterday she noticed a lump in the back of her right leg, it is sore to the touch. It does not feel warm to the touch feel warm to the touch at this time, it was painful to walk when she first got up this morning. She did take 800 mg Ibuprofen last night with slight relief, she states she stands all day at work and does not get a chance to sit. No CP, palpitations, swelling or SOB Review of Systems: Review of Systems All other systems reviewed and are negative. Current Medications: Current Outpatient Medications on File Prior to Visit Medication Sig Dispense Refill Skipwith Thyroid 60 MG tablet Take 1 tablet (60 mg) by mouth Daily DISPENSE BRAND 30 tablet 3 Restasis 0.05 % ophthalmic emulsion Administer 1 drop into both eyes every 12 (twelve) hours No current facility-administered medications on file prior to visit. I have reviewed and reconciled the history and medication list with the patient today. 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) Hypothyroidism HTN (hypertension) Low vitamin D level Past Medical History: Past Medical History: Diagnosis Date Dry eyes Sebastián's disease HTN (hypertension) Hypothyroid Vitamin D deficiency Family History: Family History Problem Relation Name Age of Onset Thyroid disease Mother Kidney disease Father Kidney disease Brother Kidney disease Father's Brother Allergies: Allergies Allergen Reactions Iodinated Contrast Media Hives Elevated BP Surgical History: Past Surgical History: Procedure Laterality Date LASER LAPAROSCOPY Social History: Social Drivers of Health Tobacco Use: Low Risk (08/20/2025) Patient History Smoking Tobacco Use: Never Smokeless Tobacco Use: Never Passive Exposure: Not on file Alcohol Use: Not on file Financial Resource Strain: Not on file Food Insecurity: Not on file Transportation Needs: Not on file Physical Activity: Not on file Stress: Not on file Social Connections: Not on file Intimate Partner Violence: Not on file Depression: Not at risk (08/20/2025) PHQ-2 PHQ-2 Score: 0 Housing Stability: Not on file Health Literacy: Not on file OBJECTIVE: Visit Vitals BP 120/82 Pulse 62 Temp 97 F Ht 5' 3 Wt 161 lb SpO2 99% BMI 28.52 kg/m Smoking Status Never BSA 1.8 m Physical Exam Constitutional: Appearance: Normal appearance. HENT: Head: Normocephalic and atraumatic. Eyes: Extraocular Movements: Extraocular movements intact. Cardiovascular: Rate and Rhythm: Normal rate and regular rhythm. Heart sounds: Normal heart sounds. Pulmonary: Effort: Pulmonary effort is normal. Breath sounds: Normal breath sounds. No wheezing, rhonchi or rales. Musculoskeletal: Cervical back: Neck supple. Legs: Comments: Tenderness and warmth to the right calf Lymphadenopathy: Cervical: No cervical adenopathy. Skin: General: Skin is warm and dry. Neurological: General: No focal deficit present. Mental Status: She is alert and oriented to person, place, and time. Psychiatric: Mood and Affect: Mood normal. Behavior: Behavior normal. Judgment: Judgment normal. No results found for this or any previous visit (from the past 4 weeks). ASSESSMENT AND PLAN: Assessment/Plan Diagnoses and all orders for this visit: Right calf pain - Vascular US lower extremity venous duplex right Imaging to be completed to r/o a DVT. Will call with results and tx based on results. Follow up if symptoms worsen or fail to improve. documented in this encounter [facility] 05-04-2025 History of Present illness Narrative Images [...] LASER LAPAROSCOPY Social History: Social Drivers of Health Tobacco Use: Low Risk (04/22/2025) Patient History [...] visit: Prediabetes Reviewed labs and/or imaging at today. Will continue current treatment regimen and [...] keratoconjunctivitis sicca Reviewed labs and/or imaging at today. Will continue current treatment regimen and [...] 12 (twelve) hours, Disp: , Rfl: thyroid (Skipwith Thyroid) 60 MG tablet, Take 1 tablet (60 mg) by mouth Daily, Disp: 30 tablet, Rfl: 3 documented in this encounter [facility] 03-12-2025 Telephone encounter Note Pt requesting call back from nurse. She is having trouble getting her MRI scheduled. She was told she could have an open MRI but when she called [facility] to schedule they said they didn't have an open MRI. [facility] 03-12-2025 Miscellaneous Notes Pt requesting call back from nurse. She is having trouble getting her MRI scheduled. She was told she could have an open MRI but when she called [facility] to schedule they said they didn't have an open MRI. documented in this encounter [facility] 01-07-2025 History of Present illness Narrative Physical [...] to be instructed in home exercise program. Jail Goals: To be met in 10 weeks [...] sign below. Date: documented in this encounter [facility] 11-11-2024 History of Present illness Narrative Images from the original note were not included. SUBJECTIVE: Neris Santana is a 64 y.o. female presents with chief complaint of Establishment. Pt presents to the office for establishment. Previous PCP: Dr. Olivares in [place]. Has dx of hasimoto's thyroiditis. Does follow [...] on file. Social History: Social Drivers of [employer] Tobacco Use: Low Risk (11/03/2024) Patient History [...] follow up when results available - thyroid (Skipwith Thyroid) 60 MG tablet; Take 1 tablet [...] daily for 30 DAYS, Disp: , Rfl: Skipwith Thyroid 60 MG tablet, take 1 tablet [...] Disp: , Rfl: documented in this encounter [facility] 11-03-2024 History of Present illness Narrative Images [...] worsening of vision documented in this encounter [facility] 03-07-2023 Note PROCEDURE: XR FOOT R T MIN 3 VIEWS COMPARISON: None. HISTORY: Pain in right foot FINDINGS: BONES:No acute fracture or dislocation. Enthesopathic spurring of the calcaneus. Mild degenerative change of the first metatarsal-phalangeal joint SOFT TISSUES:Negative. No visible soft tissue swelling. EFFUSION:None visible. OTHER: Negative. IMPRESSION: Mild degenerative changes Electronically authenticated by: CHRISTI ROBERTS Date: 2023-03-07 07:57 [facility] 11-12-2022 Evaluation note Encounter Date Diagnosis [...] weeks for the cough to go away [employer] Other 08-12-2021 Instructions* Patient Instructions* Aleksandar Moffett Ma - 07/13/2021 2:08 PM EDT Thank you for choosing the [facility] Department of Endocrinology, Diabetes and Metabolism. Did you know that you need to call 48 hours in advance of your scheduled visit, if you are unable to make your appointment? The [facility] [place] thanks you for your commitment, because patients not showing to their appointment results in a lost opportunity for patients to receive [facility] health care at the [facility]. To Cancel an appointment, please choose one of the following: - Call the Appointment Call Center at [phone] - From [employer], Go to Appointments Cancel Appts If cancelling, consider your need to reschedule to prevent further delays in your care. To Schedule an appointment, please choose one of the following: - Call the Appointment Call Center at [phone] - From [employer] [facility], Go to Appointments Request an Appt [facility] noteNoAppconomy Other [employer] noteNo InformationNoAppconomy Other [employer] note* Diagnosis Hypothyroidism due to acquired atrophy of thyroid- Primary documented in this encounter [facility]* Diagnosis Keratoconjunctivitis sicca of both eyes not specified as Sjogren's- Primary Blepharitis of upper and lower eyelids of both eyes, unspecified type Age-related nuclear cataract of both eyes documented in this encounter [facility] HealthcareEvaluation note* Diagnosis Keratoconjunctivitis sicca of both eyes not specified as Sjogren's- Primary documented in this encounter [facility] HealthcareEvaluation note* Diagnosis Acute bilateral thoracic back pain- Primary Sebastián's thyroiditis (CMS/HCC) Chronic lymphocytic thyroiditis Parathyroid related hypercalcemia (CMS/HCC) Hyperparathyroidism, unspecified Hypothyroidism, unspecified type (CMS/HCC) Hypertension, unspecified type (CMS/HCC) documented in this encounter [facility] HealthcareEvaluation note* Diagnosis Acute bilateral thoracic back pain- Primary Compression fracture of body of thoracic vertebra (CMS/HCC) documented in this encounter [facility] HealthcareEvaluation note* Diagnosis Compression fracture of body of thoracic vertebra (CMS/HCC)- Primary Acute bilateral thoracic back pain documented in this encounter [facility] HealthcareEvaluation note* Diagnosis Compression fracture of body of thoracic vertebra (CMS/HCC)- Primary Acute bilateral thoracic back pain documented in this encounter [facility] HealthcareEvaluation note* Diagnosis Compression fracture of body of thoracic vertebra (CMS/HCC)- Primary Acute bilateral thoracic back pain documented in this encounter [facility] HealthcareEvaluation note* Diagnosis Compression fracture of body of thoracic vertebra (CMS/HCC)- Primary Acute bilateral thoracic back pain documented in this encounter [facility] HealthcareEvaluation note* Diagnosis Compression fracture of body of thoracic vertebra (CMS/HCC)- Primary Acute bilateral thoracic back pain documented in this encounter [facility] HealthcareEvaluation noteNo assessment information availableKettering Health Work Phone: Evaluation note* Diagnosis Prediabetes- Primary Other abnormal glucose Hypothyroidism, unspecified type (CMS/HCC) Keratoconjunctivitis sicca of both eyes not specified as Sjogren's Elevated antinuclear antibody (SAMARA) level Other and unspecified nonspecific immunological findings Parathyroid related hypercalcemia (CMS/HCC) Hyperparathyroidism, unspecified Low vitamin D level Arthralgia, unspecified joint Sjogren's syndrome with keratoconjunctivitis sicca documented in this encounter [facility] HealthcareEvaluation note* Diagnosis Right calf pain- Primary documented in this encounter [facility] HealthcareEvaluation note* Diagnosis Allergic contact dermatitis, unspecified trigger- Primary [facility] - [facility] [employer] Other History general Narrative - Reported* Type Description Date Medical History hypothyroid Surgical History laprascopy [facility] [employer] Other Reason for visit Narrative* Rehabilitation - Outpatient (Routine) - Authorized Specialty Diagnoses / Procedures Referred By Sukhjinder monroy Referred To Contact Physical Therapy Diagnoses Compression fracture of body of thoracic vertebra (CMS/HCC) Abnormal x-ray of thoracic spine Acute bilateral thoracic back pain Procedures [place] OFFICE/OUTPATIENT [facility] MDM 60 MINUTES Corey Cervantes, [address] [place] [address] Phone: tel: fax: Jayro Samuels, PT [address] [place] [address] Phone: tel: fax: Referral ID Status Reason Start Date Expiration Date Visits Requested Visits Authorized [id number] Authorized Specialty Services Required 01/01/2025 06/30/2025 30 30 [facility] Narrative* Rehabilitation - Outpatient (Routine) - Authorized Specialty Diagnoses / Procedures Referred By Contac t Referred To Contact Physical Therapy Diagnoses Compression fracture of body of thoracic vertebra (CMS/HCC) Abnormal x-ray of thoracic spine Acute bilateral thoracic back pain Procedures [place] OFFICE/OUTPATIENT NEW HIGH MDM 60 MINUTES Corey Cervantes, DO [address] [facility] [address] [place] [address] Phone: tel: fax: Jayro Samuels, PT [address] [facility] [address] [place] [address] Phone: tel: fax: Referral ID Status Reason Start Date Expiration Date Visits Requested Visits Authorized [id number] Authorized Specialty Services Required 01/01/2025 12/01/2025 30 30 [facility] HealthcareReason for visit Narrative* Rehabilitation - Outpatient (Routine) - Closed Specialty Diagnoses / Procedures Referred By Sukhjinder t Referred To Contact Physical Therapy Diagnoses Compression fracture of body of thoracic vertebra (CMS/HCC) Abnormal x-ray of thoracic spine Acute bilateral thoracic back pain Procedures [place] OFFICE/OUTPATIENT NEW [facility] MDM 60 MINUTES Corey Cervantes, DO [address] [facility] [address] [place] [address] Phone: tel: fax: Jayro Samuels, PT [address] [address] Phone: tel: fax: Referral ID Status Reason Start Date Expiration Date V isits Requested Visits Authorized [id number] Closed Specialty Services Required 01/01/2025 12/01/2025 30 30 [facility] History of Past Illness Name Date of Onset Comments Hypothyroidism TMJ (temporomandibular joint disorder) Dental examination Jan 14 2018 1:34PM Dental examination May 26 2018 2:41PM Dental calculus May 26 2018 2:41PM Summary Purpose Family History No Family History Records Found Relationship Condition Age at Onset Recorded Date/T narcisa father Unknown Family history of kidney disease Unknown mother Hypothyroidism Unknown Advance Directives No Advanced Directives Records Found Advance Directive Response Recorded Date/ Time Advance Directives No March 16 10:48am Reason for Referral Specialty Diagnoses / Procedures Referred By Sukhjinder t Referred To Contact Nutrition Diagnoses Hypothyroidism due to acquired atrophy of thyroid Procedures CONSULT TO NUTRITION THERAPY NEW PATIENT VISIT LEVEL 5 Abelino Brower MD [address] [place] [address] Referral ID Status Reason Start Date Expiration Date Visits Requested Visits Authorized [id number] Authorized PCP Requested Referral 07/13/2021 07/13/2022 1 1 Chief Complaint and Reason for Visit Chief Complaint Admit Date S22.000A R93.7 April 07, 2025 2:16pm Additional Source Comments INFORMATION SOURCE (unrecogn ized section and content) DATE CREATED AUTHOR 11/20/2018 [facility] DATE CREATED AUTHOR AUTHOR'S ORGANIZ ATION 02/19/2021 [facility] DATE CREATED AUTHOR AUTHOR'S ORGANIZ ATION 06/22/[address] [facility] DATE CREATED AUTHOR AUTHOR'S ORGANIZ ATION 03/19/2023 [facility] DATE CREATED AUTHOR AUTHOR'S ORGANIZ ATION 04/16/2025 [facility] DATE CREATED AUTHOR AUTHOR'S ORGANIZ ATION 09/12/2025 [facility] EPIC REASON FOR VISIT (unrecogniz [...] or prosecute any alcohol or drug abuse patient.[facility] Care Teams (unrecognized sec tion and content) Time Study Analyst Relationship Specialty Start Date End Date MaykelscottEnio PCP - General Family Practice 10/29/17 Time Study Analyst Relationship Specialty Start Date End Date Corey Cervantes DO [address] [place] [address] PCP - General Family Medicine 11/11/24 Time Study Analyst Relationship Specialty Start Date End Date Corey Cervantes DO [address] [place] [address] PCP - General Family Medicine 11/11/24 Time Study Analyst Relationship Specialty Start Date End Date Corey Cervantes DO [address] [place] [address] PCP - General Family Medicine 11/11/24 Time Study Analyst Relationship Specialty Start Date End Date Corey Cervantes DO [address] [place] [address] PCP - General Family Medicine 11/11/24 Time Study Analyst Relationship Specialty Start Date End Date Corey Cervantes DO [address] [place] [address] PCP - General Family Medicine 11/11/24 Time Study Analyst Relationship Specialty Start Date End Date Corey Cervantes DO [address] [place] [address] PCP - General Family Medicine 11/11/24 Time Study Analyst Relationship Specialty Start Date End Date Corey Cervantes DO [address] [place] [address] PCP - General Family Medicine 11/11/24 Time Study Analyst Relationship Specialty Start Date End Date Corey Cervantes DO [address] [place] [address] PCP - General Family Medicine 11/11/24 Time Study Analyst Relationship Specialty Start Date End Date Corey Cervantes DO [address] [place] [address] PCP - General Family Medicine 11/11/24 Time Study Analyst Relationship Specialty Start Date End Date Corey Cervantes DO [address] [place] [address] PCP - General Family Medicine 11/11/24 Time Study Analyst Relationship Specialty Start Date End Date Corey Cervantes DO [address] [place] [address] PCP - General Family Medicine 11/11/24 Time Study Analyst Relationship Specialty Start Date End Date Corey Cervantes DO [address] [place] [address] PCP - General Family Medicine 11/11/24 Time Study Analyst Relationship Specialty Start Date End Date Corey Cervantes DO [address] [place] [address] PCP - General Family Medicine 11/11/24 Team Status: Active Member Role Status Dates Timmy Cervantes DO Primary Care Provider Active Team Status: Inactive Member Role Status Dates Timmy Cervantes DO Primary Care Provi yolanda, Attending Provider Active Start: April 07, 2025 End: April 07, 2025 Time Study Analyst Relationship Specialty Start Date End Date Corey Cervantes DO [address] [place] [address] PCP - General Family Medicine 11/11/24 Time Study Analyst Relationship Specialty Start Date End Date Corey Cervantes, [address] [place] [address] PCP - General Family Medicine 11/11/24 Time Study Analyst Relationship Specialty Start Date End Date Corey Cervantes DO [address] [place] [address] PCP - General Family Medicine 11/11/24 Goals (unrecognized section and content) Goals [...] BE BASED ON THE PRIMARY CLINICAL RECORDS. [employer] provides no warranty or guarantee of the accuracy or completeness of information in this document.
--- NOTE | 2025-09-16 14:17 | XR_ITS ---
The [address] [address] Patient Name: BRUNA BOLDEN MRN: [id number] date: 1960 Sex: F Assigned Patient Location: [facility] Current Patient Location: [facility] Accession/Order Number: [id number] Exam Date: 09/16/2025 14:25 Report Date: 09/16/2025 19:29 At the request of: NON-STAFF PHYSICIAN MD Procedure: XR hand ABNER min 3v XR hand ABNER min 3v 09/16/2025 2:37 PM SIGNS AND SYMPTOMS: ^Inflammatory Changes vs Degenerative ^Positive SAMARA R76.8 PROTOCOL: Frontal, lateral, and oblique radiographs of the bilateral hands COMPARISON: None FINDINGS: The bones are in anatomic alignment. There is mild narrowing of the interphalangeal joints of the thumbs. Mild degenerative changes are also noted in the first carpal metacarpal junction. The joint spaces are otherwise preserved. There is no fracture or dislocation. No significant soft tissue swelling. XR/XR hand ABNER min 3v IMPRESSION: Degenerative changes are noted in the thumbs bilaterally. No acute bony injury. Impression dictated by: Deep Puckett M.D. 09/16/2025 7:29 PM Dictation Location: [place] [address] Electronically authenticated by: [id number] Date: 09/16/2025 19:29
== END 2025-09-16 14:09 | disposition home or self-care (01) ==
LOC: RAD 14:10
DX: S22.000A Wedge compression fracture of unspecified thoracic vertebra, initial encounter for closed fracture (principal); Z78.0 Asymptomatic menopausal state; M85.88 Other specified disorders of bone density and structure, other site; R76.89 Other specified abnormal immunological findings in serum
CPT/HCPCS: 73130; 77080